=== PATIENT | male | born 1950 | race Caucasian/White ===

== ENCOUNTER 2016-07-11 21:42 | Inpatient (IN) | payer OTHER ==
[~2016-07-11] VITALS: Ht 175.3 cm; Wt 77.1 kg
--- NOTE | 2016-07-11 23:43 | DIAGNOSTIC IMAGING REPORT ---
PROCEDURE: US VENOUS - RIGHT EXT INDICATION: Right lower extremity edema and pain, initial encounter TECHNIQUE: Duplex sonography of the deep venous system in the right lower extremity was performed. Compression and augmentation techniques were used. COMPARISON: None. FINDINGS: Normal compression of the greater saphenous, common femoral, superficial femoral, popliteal, peroneal, and posterior tibial veins. Normal augmentation. There is no evidence of superficial or deep venous thrombosis. There are several mildly prominent right inguinal lymph nodes. IMPRESSION: 1. No evidence of a right lower extremity DVT 2. Mild right inguinal adenopathy, likely reactive
[2016-07-12] VITALS (14 sets, daily range): BP systolic 100–153; BP diastolic 44–69
--- NOTE | 2016-07-12 00:54 | ED CLINICAL REPORT ---
Clinical Report - Physicians/Mid Levels [facility] [address] [place] [address] 07/11/2016 21:42 Patient: AMAN SALINAS Time Seen: 22:13; initial patient contact, initial documentation, patient care assumed. Arrived- By private vehicle. Historian- patient. HISTORY OF PRESENT ILLNESS Chief Complaint: Injury to right ankle and knee. The injury happened about 4 days ago. Occurred at home. ( knelt down and thought his knee hit something hard). Patient is experiencing moderate pain. Patient denies injury to the head or neck. No other injury. REVIEW OF SYSTEMS The patient complains of pain on weight bearing. He has had swelling. No tingling, weakness, numbness or skin laceration. All systems otherwise negative, except as recorded above. PAST HISTORY See nurses notes. ( PROBLEMS: Abrasion(s). Laceration. Fall. --21:51 Carson Briones R.N. ADDITIONAL SURGERIES: Adenoidectomy. Tonsillectomy. --21:51 Carson Briones R.N.). SOCIAL HISTORY Heavy tobacco smoker. History of heavy IV drug use: heroin. No alcohol use. No recent travel. Is a local resident. FAMILY HISTORY No significant family medical history. ADDITIONAL NOTES The nursing notes have been reviewed with agreement regarding the chief complaint, HPI, ROS, PMH and patient medications and allergies. PHYSICAL EXAM Vital Signs: 07/11/2016 21:49 BP: 134/56. HR: 120. RR: 18. O2 saturation: 98%. Temp: 98 F. Have been reviewed as abnormal and appear to be correct. Blood pressure normal. Tachycardic. Respiratory rate normal. Temperature normal. Oxygen saturation normal. Appearance: Alert. Oriented X3. No acute distress. Head: Head atraumatic. Eyes: Pupils equal, round and reactive to light. Eyes normal inspection. Neck: Normal inspection. Neck supple. C-spine non-tender. CVS: Heart rate / rhythm abnormal. Tachycardia (ventricular rate = 116). Heart sounds normal. Pulses normal. Respiratory: No respiratory distress. Breath sounds normal. Chest nontender. Abdomen: No visible injury. Soft and nontender. Bowel sounds normal. No organomegaly. No mass. Back: Normal inspection. No tenderness. ROM normal. Skin: Skin intact. Skin warm and dry. Normal skin color. Normal skin turgor. Extremities: Lower extremity soft-tissue tenderness present. No signs of infection involving the lower extremities. No bony tenderness in the lower extremities. Ankle stable. (large amount of swelling to knee, lower leg and foot, warmth, mild erythema, tenderness, decreased rom secondary to pain, pedal edema +1). Able to test ankle stability. Lower extremity exam not otherwise negative. Extremities otherwise negative. Gait: Abnormal gait. Gait not tested due to pain. Neuro, Vascular and Tendons: Vascular status intact. Sensation intact. Motor intact. Tendon function intact. Neuro: Oriented X 3. No motor deficit. No sensory deficit. LABS, X-RAYS, AND EKG X-Rays: Right knee. Laboratory Tests: CBC w Diff: (NORMAN: 07/12/2016 00:10) ( MsgRcvd 07/12/2016 01:52) Final results Test Result Flag Units (Reference) WHITE BLOOD COUNT 33.3 *H K/uL (4.5-11.5) CRITICAL RESULTS CALLEDCalled to LIONEL HANDY RN 07/12/16 0023Were 2 patient identifiers used? YWas the result read back? Y RED BLOOD COUNT 4.04 L M/uL (4.50-5.90) HEMOGLOBIN 10.4 L gm/dL (13.5-17.5) HEMATOCRIT 32.5 L % (41.0-53.0) MEAN CELL VOLUME 81 fL (80-100) MEAN CORPUSCULAR HGB 26 pg (26-34) MEAN CORPUSCULAR HGB CONC 32 g/dL (31-37) RED CELL DISTRIBUTION WIDTH 18.7 H % (11.6-14.8) PLATELET COUNT 271 K/uL (150-400) NEUTROPHIL % 88.8 H % (50-75) LYMPH % 9.9 L % (25-40) MONO % 0.4 L % (3-14) EOSINOPHIL % 0.3 % (0-4) BASOPHIL % 0.6 % (0-2) POLY % 32 L % (50-75) BAND % 56 H % (0-8) LYMPH 11 L % (25-40) MONO 1 L % (3-14) EOSINOPHIL % 0 % (0-4) BASOPHIL % 0 % (0-2) METAMYELOCYTE % 0 % (0-1) MYELOCYTE 0 % (0-1) OTHER CELL TYPE 0 ANISOCYTOSIS 1+ Lactate, Serum: (NORMAN: 07/12/2016 00:50) ( MsgRcvd 07/12/2016 01:32) Final results Test Result Flag Units (Reference) LACTIC ACID 2.1 H mmol/L (0.4-2.0) BMP: (NORMAN: 07/12/2016 00:10) ( MsgRcvd 07/12/2016 00:28) Final results Test Result Flag Units (Reference) GLUCOSE 155 H mg/dL (70-110) BUN 15 mg/dL (7-18) CREATININE 1.1 mg/dL (0.6-1.3) Estimated GFR >60 mL/min Estimated GFR- >60 mL/min Note: Persistent reduction over 3 months in eGFR<60 mL/min/1.73 m2 defines CKD. Patients with eGFR values>=60 mL/min/1.73 m2 may also have CKD if evidence ofpersistent proteinuria. Additional information may be foundat www.kidney.org. SODIUM 135 L mmol/L (136-145) POTASSIUM 3.9 mmol/L (3.5-5.1) CHLORIDE 103 mmol/L (98-107) CARBON DIOXIDE 28 mmol/L (21-32) CALCIUM 8.1 L mg/dL (8.5-10.1) Culture, Body Fluid: (NORMAN: 07/12/2016 00:01) ( MsgRcvd 07/12/2016 06:53) IP Specimen Comment: joint fluid aspirate, R knee for G stain and culture SPECIMEN DESCRIPTION: fluid aspirate R knee Is patient on antibiotics? Y If so, list antibiotic: Vancomycin Test Result Flag Units (Reference) GRAM STAIN, BODY FLUID DATE: 12/30/16 NO ORGANISMS SEEN: NO ORGANISMS SEEN WHITE BLOOD CELLS: MANY POLY . Note - Tests: (Venous Doppler R LE - no dvt verbal report given by 3 Four 5 Group). PROGRESS AND PROCEDURES Course of Care: 23:03 07/11/16. Reported off to Dr Hernandez whom is assuming care and will dispo pt after xray and doppler The case was discussed with Ms. Garvin and I reviewed his history with him and examined him. my findings were consistent with those noted by Ms. Garvin. Discussed case with hospitalist, (Cora). Reviewed test results and need for additional work-up. Agreed upon treatment plan and decision to admit. Health care provider will see patient in hospital. Patient/family counseled. Old medical records ordered. Differential Diagnosis: Other possible considerations: substance abuse, dvt, cellulitis, gout, fx, compartment syndrome. Above considerations are based on history, physical exam, X-Ray data and other information. Differential diagnosis was discussed with patient. Disposition orders written (in [facility]). Disposition: Admitted. CLINICAL IMPRESSION Cellulitis of the right lower leg. (Electronically signed by Greyson Hernandez MD 07/12/2016 8:07)
--- NOTE | 2016-07-12 00:55 | ED ORDER SUMMARY ---
..... Patient: AMAN SALINAS OrderSheet [facility] VisitID: [id number] [address] [place] [address] 66y, M Registration Date/Time: 07/11/2016 ORDER SHEET Weight: 82.5 kg (stated) Allergies: No Known Drug Allergy GENERAL ORDERS: Knee 4V Right Urgent (22:31 07/11/2016 HBivens A.R.N.P.) (22:59 MCampbell) US Venous Right Urgent (22:32 07/11/2016 HBivens A.R.N.P.) (23:12 CHagerty ER Factorer) CBC w Diff Urgent (23:05 07/11/2016 HBivens A.R.N.P.) (Ack 23:14 CHagerty ER Factorer) (0:40 JBullard R.N.) BMP Urgent (23:05 07/11/2016 HBivens A.R.N.P.) (Ack 23:14 CHagerty ER Factorer) (0:40 JBullard R.N.) Lactate, Serum Urgent (00:25 07/12/2016 Priscilla PEÑA) (Ack 0:30 CHagerty ER Factorer) (0:54 JBullard R.N.) Blood Culture (No) (N/A) Urgent (00:26 07/12/2016 Priscilla PEÑA) (Ack 0:30 CHagerty ER Factorer) (0:54 JBullard R.N.) MEDICATION ORDERS: IV FLUIDS: Vancomycin IV 2 gm/500 mL (NOW) (00:26 07/12/2016 Priscilla PEÑA) (1:10 JBullard R.N.) ORDER SHEET NOTES: [Electronically signed by Carson Briones R.N. (03:49 07/12/2016)] [Electronically signed by Greyson Hernandez MD (08:07 07/12/2016)] [Electronically locked/signed by Carson Briones R.N. (03:49 07/12/2016)]
--- NOTE | 2016-07-12 00:55 | ED ORDER SUMMARY ---
..... Patient: AMAN SALINAS OrderSheet [facility] VisitID: [id number] [address] [place] [address] 66y, M Registration Date/Time: 07/11/2016 ORDER SHEET Weight: 82.5 kg (stated) Allergies: No Known Drug Allergy GENERAL ORDERS: Knee 4V Right Urgent (22:31 07/11/2016 HBivens A.R.N.P.) (22:59 MCampbell) US Venous Right Urgent (22:32 07/11/2016 HBivens A.R.N.P.) (23:12 CHagerty ER Bryologist) CBC w Diff Urgent (23:05 07/11/2016 HBivens A.R.N.P.) (Ack 23:14 CHagerty ER Bryologist) (0:40 JBullard R.N.) BMP Urgent (23:05 07/11/2016 HBivens A.R.N.P.) (Ack 23:14 CHagerty ER Bryologist) (0:40 JBullard R.N.) Lactate, Serum Urgent (00:25 07/12/2016 Priscilla PEÑA) (Ack 0:30 CHagerty ER Bryologist) (0:54 JBullard R.N.) Blood Culture (No) (N/A) Urgent (00:26 07/12/2016 Priscilla PEÑA) (Ack 0:30 CHagerty ER Bryologist) (0:54 JBullard R.N.) MEDICATION ORDERS: IV FLUIDS: Vancomycin IV 2 gm/500 mL (NOW) (00:26 07/12/2016 Priscilla PEÑA) (1:10 JBullard R.N.) ORDER SHEET NOTES: [Electronically signed by Carson Briones R.N. (03:49 07/12/2016)] [Electronically signed by Greyson Hernandez MD (08:07 07/12/2016)] [Electronically locked/signed by Carson Briones R.N. (03:49 07/12/2016)]
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
--- NOTE | 2016-07-12 08:07 | ED MAR SUMMARY ---
..... Medication Administration Record [facility] [address] [place] [address] Patient: AMAN SALINAS Visit ID: [id number] 66y, M Weight: 82.5 kg Height/Length: 71 in BMI: 25.4 ALLERGIES: No Known Drug Allergy Start 01:10 07/12/2016 Carson Briones R.N. Medication Administered: VANCOMYCIN [IVPB], Dose: 2 gm IVPB over 1.6 hour(s), Rate: 250 mL/hr, Dispensed: 400 mL bag, Site: #1 left forearm. Medication Ordered: Vancomycin IV 2 gm/500 mL (NOW).
--- NOTE | 2016-07-12 08:07 | ED MED RECONCILIATION SUMMARY ---
Patient: AMAN SALINAS Medication Reconciliation Report [facility] VisitID: [id number] [address] [place] [address] 66y, M Registration Date/Time: 07/11/2016 Weight: 82.5 kg Height/Length: 71 in. BMI: 25.4 ALLERGIES: No Known Drug Allergy The patient's Home Medications are listed below: NONE. The source(s) of the original Home Medication information: Not obtained. The following Medications were given to the patient in the Emergency Department: Vancomycin [IVPB] IVPB bolus 0, then 2 gm 250 mL/hr, administered: 07/12/2016 1:10:00 AM The following Medications were prescribed to the patient: None.
--- NOTE | 2016-07-12 08:07 | ED DISCHARGE INSTRUCTIONS ---
Patient: AMAN SALINAS General Instructions [facility] VisitID: [id number] [address] [place] [address] 66y, M Registration Date/Time: 07/11/2016 Cellulitis of the right lower leg. (Electronically signed by Greyson Hernandez MD 07/12/2016 8:07)
--- NOTE | 2016-07-12 08:07 | ED DISCHARGE INSTRUCTIONS ---
Patient: AMAN SALINAS General Instructions [facility] VisitID: [id number] [address] [place] [address] 66y, M Registration Date/Time: 07/11/2016 Cellulitis of the right lower leg. (Electronically signed by Greyson Hernandez MD 07/12/2016 8:07)
--- NOTE | 2016-07-12 08:07 | ED MAR SUMMARY ---
..... Medication Administration Record [facility] [address] [place] [address] Patient: AMAN SALINAS Visit ID: [id number] 66y, M Weight: 82.5 kg Height/Length: 71 in BMI: 25.4 ALLERGIES: No Known Drug Allergy Start 01:10 07/12/2016 Carson Briones R.N. Medication Administered: VANCOMYCIN [IVPB], Dose: 2 gm IVPB over 1.6 hour(s), Rate: 250 mL/hr, Dispensed: 400 mL bag, Site: #1 left forearm. Medication Ordered: Vancomycin IV 2 gm/500 mL (NOW).
--- NOTE | 2016-07-12 08:07 | ED MED RECONCILIATION SUMMARY ---
Patient: AMNA SALINAS Medication Reconciliation Report [facility] VisitID: [id number] [address] [place] [address] 66y, M Registration Date/Time: 07/11/2016 Weight: 82.5 kg Height/Length: 71 in. BMI: 25.4 ALLERGIES: No Known Drug Allergy The patient's Home Medications are listed below: NONE. The source(s) of the original Home Medication information: Not obtained. The following Medications were given to the patient in the Emergency Department: Vancomycin [IVPB] IVPB bolus 0, then 2 gm 250 mL/hr, administered: 07/12/2016 1:10:00 AM The following Medications were prescribed to the patient: None.
--- NOTE | 2016-07-12 08:22 | HISTORY AND PHYSICAL ---
ADMITTED: 07/12/2016 CHIEF COMPLAINT: 1. Pain and swelling and redness in the right lower leg HISTORY OF PRESENT ILLNESS: The patient is a 66-year-old white male who presented to the emergency department in the late evening 07/11/2016 complaining of redness and pain developing in his right lower leg. He had been crawling around under his trailer changing a propane tank 3-4 days prior to his presentation. He is not sure if he somehow punctured the skin with a sharp object underneath his trailer perhaps. He also has a history of heroin use and subcutaneous injections in his thighs and hip areas. He thinks there might be a possibility that he injected somewhat lower, closer to his right knee, though he does not recall doing this. He had the redness developing initially in the mid portion of the lower leg and then it seemed to spread down towards the ankle and up towards the knee. Over the last 24 hours, it has become extremely painful. He is no longer able to bear weight on his leg. He has had perhaps low-grade fever. He has had no shaking chills. He has not felt nauseated or lightheaded. 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 He was never able to control the pain very well and this led him to start using heroin years ago and he has persisted using the heroin for pain control for many, many years. He does subcutaneous injections quite regularly for pain control. He has occasionally used intravenous heroin, though he has not administered it this way for quite a long time. He denies having any other major medical problems. He has had no hospitalizations for infections or other medical difficulties. Surgical History: Remarkable for remote tonsillectomy and adenoidectomy. ALLERGIES: 1. NONE MEDICATIONS: Occasional Aleve in addition to the heroin. He does not usually use any other medicines. SOCIAL HISTORY: The patient is currently single. He has been and 3 times. He has no children. He was taking care of his mother for a number of years. Currently, he is living in a small trailer. He does smoke 1 to 1-1/2 pack of cigarettes per day. He does not use any alcohol. FAMILY HISTORY: Remarkable for a mother who at age 99 years 7 months of basically old age. The patient's father around age 66 or 67 of non-Hodgkin's lymphoma. REVIEW OF SYSTEMS: HEENT is okay. The patient does wear corrective lenses. Respiratory: Okay with no major coughing or shortness of breath, but does have somewhat of a chronic cough due to smoking. Cardiovascular: Okay with no history of heart problems or rapid heartbeats or circulatory problems. Gastrointestinal is stable with no heartburn or blood in stools or abdominal pain. Genitourinary: Okay with no problems passing urine. Musculoskeletal is remarkable for chronic low back pain, chronic shoulder pain and swelling in the right lower leg as noted. Neurologic: Okay. Psychiatric: Okay. Skin is as noted above with redness and tenderness developing in the right lower leg and knee area. PHYSICAL EXAMINATION: GENERAL: Reveals the patient to be a white male appearing to be his stated age to perhaps slightly older. He is conversant and cooperative. VITAL SIGNS: Temperature is 99.3. Pulse is around 100 and regular. Blood pressure is 118/70. O2 saturation is 100% on room air. HEENT: Head is normal. Ear canals and tympanic membranes are normal. Eyes show pupils equal, round, and reactive to light with normal extraocular movements. Fundi reveal flat disks, normal vessels. Nose and throat are clear. Dentition is fair. NECK: Supple without adenopathy. There are no bruits. CHEST: Reveals somewhat decreased breath sounds with an I:E ratio about 1:1. There are no major rales, wheezes or rhonchi. HEART: Reveals normal S1 and S2 with a grade 1/6 systolic murmur along the left sternal border. There is no diastolic murmur. ABDOMEN: Nontender with no organomegaly or mass. Bowel tones are normal. GENITALIA: Show normal uncircumcised male with testes descended bilaterally. RECTAL: Reveals a small external hemorrhoidal tag. There are no rectal masses. Prostate is moderately enlarged and shows no distinct nodule. NEUROLOGIC: Reveals the patient to be alert and oriented x3. Cranial nerves are normal. Motor and sensory exams are normal. EXTREMITIES: Show multiple pock arreola in the left lower extremity with +1 to +2 lower leg and ankle edema, +2 dorsalis pedis pulses noted on the left. Right lower extremity reveals the right thigh to be normal in size with multiple small pock arreola from prior heroin injections, but none active currently. There is erythema and swelling beginning at the knee with a moderate knee effusion. The erythema extends down to the ankle. There is quite pronounced pain and inability to flex the right knee without excruciating pain. There is +3 edema from the knee to the ankle and foot area, +2 dorsalis pedis pulse noted on the left. Sensation in the lower legs is normal. No other skin abnormalities are noted. LAB/IMAGING: Show white blood cell count to be 33,000 with 89% polys. Hemoglobin is 10.4. Hematocrit is 32.5. Sodium is 135, potassium 3.9, chloride 103, CO2 of 28, glucose 155, creatinine 1.1. BUN 15. A Doppler ultrasound of the right lower extremity showed no evidence of deep vein thrombosis. IMPRESSION: 1. The patient is presenting with cellulitis of the right lower extremity. He may have a septic arthritis in the right knee. Right knee joint was aspirated and fluid was sent for Gram stain and culture. See the procedure note. 2. Other problems include heroin abuse, mild chronic obstructive pulmonary disease, chronic back pain, moderate prostate hypertrophy. PLAN: The patient was started on vancomycin in the emergency department and this will be continued. He will have initial antibiotic ordered to expand for gram-negative coverage until culture results become available. Pain will be managed with oral Vicodin plus hydromorphone IV if needed for breakthrough pain. He may need an orthopedic consult to be considered for drainage and debridement of the knee if the joint fluid comes back positive for infection. Additionally, he will have blood testing done for hepatitis B and C, HIV infection and will also have a PSA test done. Smoking urges will be controlled with a trial of nicotine patch. CODE STATUS: I discussed his code status. He wishes to be a NO CODE. He would like to have aggressive treatment with medications, but if his heart suddenly stopped beating and he needed defibrillation or if he had worsening of his breathing and reached the point where he needed to be intubated and on the ventilator, he would not wish to proceed with either of these procedures. Additionally, he would not want a long- term feeding tube. These items are recorded in his chart.
--- NOTE | 2016-07-12 08:26 | HISTORY AND PHYSICAL ---
ADMITTED: 07/12/2016 ADDENDUM REVIEW OF SYSTEMS: I discussed his code status. He wishes to be a NO CODE. He would like to have aggressive treatment with medications, but if his heart suddenly stopped beating and he needed defibrillation or if he had worsening of his breathing and reached the point where he needed to be intubated and on the ventilator, he would not wish to proceed with either of these procedures. Additionally, he would not want a long- term feeding tube. These items are recorded in his chart.
--- NOTE | 2016-07-12 11:29 | DIAGNOSTIC IMAGING REPORT ---
PROCEDURE: XR KNEE 4 VIEWS - RIGHT INDICATION: TRAUMA/INJURY TECHNIQUE: Four views. COMPARISON: Venous ultrasound same date FINDINGS: Osseous structures and joint spaces are normal. IMPRESSION: 1. Normal right knee.
[2016-07-13] VITALS (24 sets, daily range): BP systolic 106–125; BP diastolic 40–60
--- NOTE | 2016-07-13 10:22 | Progress Note ---
Subjective General pt. is feeling better. Leg is less painful and kne is less swollen. He feels dose of methadone is too low. Constitutional Malaise. Denies: Fever, Chills, Sweats. Respiratory Denies: SOB w/exertion, Wheezing, Hemoptysis. Gastrointestinal Nausea. Denies: Other (anorexia). Musculoskeletal Leg Pain (leg and knee pain improving.). Physical Exam Vital Signs / I&Os Vital Signs Date Time Temp Pulse Resp B/P Pulse O2 O2 Flow FiO2 Ox Delivery Rate 07/13 0958 Room Air 07/13 0900 91 19 119/56 98 Room Air 07/13 0800 86 18 116/52 99 Room Air 07/13 0715 98.1 07/13 0700 88 18 117/58 99 Room Air 07/13 0610 91 18 114/51 98 Room Air 07/13 0500 88 18 110/59 97 Room Air 07/13 0400 87 18 115/55 98 Room Air 07/13 0300 85 17 121/58 98 Room Air 07/13 0200 98.2 89 20 125/57 97 Room Air 07/13 0100 98 15 108/55 100 Room Air 07/13 0000 97 17 122/50 98 Room Air 07/12 2300 98.4 101 25 105/53 98 Room Air 07/12 2209 90 20 108/57 97 07/12 2117 89 25 103/55 99 07/12 2030 Room Air 07/12 2015 91 18 113/53 99 07/12 1904 98.6 92 21 104/61 100 07/12 1810 97 18 124/57 95 07/12 1700 81 19 104/59 97 07/12 1606 91 23 108/61 97 07/12 1503 93 19 108/56 97 07/12 1411 98.2 92 14 153/44 97 07/12 1300 98.4 88 20 100/62 99 Room Air 07/12 1027 98.2 88 20 108/63 99 Room Air I&O 07/12 0800 07/12 1600 07/13 0000 Intake Total 480 1222 Output Total 275 Balance 480 947 General Appearance Alert, Oriented X3, Cooperative HEENT Normal exam Lungs decrease BS with some faint rhonchi Cardiovascular Regular rate and rhythm, Normal S1 and S2, No murmurs, gallops, rubs Abdomen Normal bowel sounds, No guarding Extremities reddness and warmth and edema of R knee and lower leg are all improving. Psych/Mental Status Mental status normal LAB Results Laboratory Tests 07/12 07/12 07/12 07/12 07/13 1041 1440 1440 1750 0408 Chemistry Plasma Sodium (136 - 145 mmol/L) 141 Plasma Potassium (3.5 - 5.1 mmol/L) 3.7 Plasma Chloride (98 - 107 mmol/L) 106 CO2 (Enzymatic) (21 - 32 mmol/L) 26 BUN (7 - 18 mg/dL) 21 Creatinine (0.6 - 1.3 mg/dL) 1.1 Est GFR ( Amer) (mL/min) >60 Est GFR (Non-Af Amer) (mL/min) >60 Glucose (70 - 110 mg/dL) 111 Lactic Acid (0.4 - 2.0 mmol/L) 1.8 1.1 Plasma Calcium (8.5 - 10.1 mg/dL) 7.5 Plasma Magnesium (1.8 - 2.4 mg/dL) 1.7 Total Bilirubin (0.0 - 1.0 mg/dL) 1.1 Direct Bilirubin (0 - 0.3 mg/dL) 0.8 AST (15 - 37 U/L) 14 ALT (12 - 78 U/L) 10 Alkaline Phosphatase (46 - 116 U/L) 146 C-Reactive Protein (0.0 - 0.9 mg/dL) 25.4 Total Protein (6.4 - 8.2 g/dL) 5.4 Albumin (3.3 - 5.0 g/dL) 1.6 Procalcitonin (0 - 0.5 ng/mL) 4.5 Hematology WBC (4.5 - 11.5 K/uL) 38.1 RBC (4.50 - 5.90 M/uL) 3.68 Hgb (13.5 - 17.5 gm/dL) 9.6 Hct (41.0 - 53.0 %) 29.7 MCV (80 - 100 fL) 81 MCH (26 - 34 pg) 26 RDW (11.6 - 14.8 %) 18.9 Neut % (Auto) (50 - 75 %) 53 Lymph % (Auto) (25 - 40 %) 11 [place] % (Auto) (3 - 14 %) 5 Eos % (Auto) (0 - 4 %) 1 Baso % (Auto) (0 - 2 %) 1 Band Neutrophils % (0 - 8 %) 29 Metamyelocytes % (0 - 1 %) 0 Myelocytes (0 - 1 %) 0 Other Cell Type 0 Plt Count, EDTA (150 - 400 K/uL) 244 RBC Morphology (47319 A) 1+ MICROCYTOSIS PUBS MCHC (31 - 37 g/dL) 32 07/13 0408 Chemistry Plasma Sodium (136 - 145 mmol/L) 142 Plasma Potassium (3.5 - 5.1 mmol/L) 3.7 Plasma Chloride (98 - 107 mmol/L) 106 CO2 (Enzymatic) (21 - 32 mmol/L) 26 BUN (7 - 18 mg/dL) 22 Creatinine (0.6 - 1.3 mg/dL) 1.1 Est GFR ( Amer) (mL/min) >60 Est GFR (Non-Af Amer) (mL/min) >60 Glucose (70 - 110 mg/dL) 114 Plasma Calcium (8.5 - 10.1 mg/dL) 7.4 Assessment and Plan Problem List 1. Cellulitis Plan continue vancomycin and Zosyn. Await cultures. 2. Heroin use Plan Pt. quite restless. Will increase methadone to 10mg q 6h. 3. COPD (chronic obstructive pulmonary disease) Plan Breathing stable. Stay off cigs. Nicotine patch prn. 4. Abnormal liver function test Plan will check for HepB,HepC, HIV. E&M Codes Rounding: Inpt-Moderate/84601
[2016-07-14] VITALS (11 sets, daily range): BP systolic 112–145; BP diastolic 47–94
--- NOTE | 2016-07-14 09:07 | Progress Note ---
Subjective General 66 yo male admitted with right knee cellulitis with redness, swelling and pain for 6 days since injuring it. Patient has chronic pain and uses heroin for pain control. Today he feels less pain and swelling in right knee and believes he is improving. Cultures of blood and knee aspirate are negative so far. Physical Exam Vital Signs / I&Os Vital Signs Date Time Temp Pulse Resp B/P Pulse O2 O2 Flow FiO2 Ox Delivery Rate 07/14 0607 98.1 82 16 119/58 90 Room Air 0.0 07/14 0504 61 16 123/58 96 Room Air 07/14 0400 98.1 70 18 131/54 96 Room Air 07/14 0313 68 14 112/47 96 Room Air 0.0 07/14 0204 98.4 75 16 122/60 95 Room Air 0.0 07/14 0100 71 14 127/59 94 Room Air 0.0 07/14 0009 85 28 127/53 94 Room Air 0.0 07/13 2309 69 18 117/54 97 Room Air 0.0 07/13 2207 98.2 71 17 125/55 95 Room Air 07/13 2109 71 17 117/50 94 Room Air 07/13 2006 73 18 123/53 98 Room Air 07/13 2004 Room Air 07/13 1900 84 16 117/54 96 Room Air 07/13 1809 98.2 83 19 122/53 92 Room Air 07/13 1711 71 15 124/59 100 Room Air 07/13 1607 70 16 120/55 99 Room Air 07/13 1510 98.2 71 21 110/60 98 Room Air 07/13 1400 74 20 106/40 98 Room Air 07/13 1300 80 18 108/60 98 Room Air 07/13 1200 90 20 119/43 98 Room Air 07/13 1129 98.1 07/13 1100 86 18 114/59 95 Room Air 07/13 1000 78 19 120/54 95 Room Air 07/13 0958 Room Air I&O 07/13 0800 07/13 1600 07/14 0000 Intake Total 1958 1739 812 Output Total 500 200 300 Balance 1458 1539 512 General Appearance Alert, Oriented X3, Cooperative Lungs Normal exam Cardiovascular Regular rate and rhythm, No murmurs, gallops, rubs Abdomen Normal bowel sounds, Soft, No tenderness Extremities Right leg diffusely swollen, worst around right knee. Mild diffuse tenderness with mild erythema. No calf tenderness. LAB Results Laboratory Tests 07/13 07/13 07/14 1124 1124 0420 Chemistry Plasma Sodium (136 - 145 mmol/L) 141 Plasma Potassium (3.5 - 5.1 mmol/L) 3.5 Plasma Chloride (98 - 107 mmol/L) 107 CO2 (Enzymatic) (21 - 32 mmol/L) 24 BUN (7 - 18 mg/dL) 24 Creatinine (0.6 - 1.3 mg/dL) 1.1 Est GFR ( Amer) (mL/min) >60 Est GFR (Non-Af Amer) (mL/min) >60 Glucose (70 - 110 mg/dL) 123 Plasma Calcium (8.5 - 10.1 mg/dL) 7.4 Plasma Magnesium (1.8 - 2.4 mg/dL) 1.9 Hematology WBC (4.5 - 11.5 K/uL) 27.6 RBC (4.50 - 5.90 M/uL) 3.39 Hgb (13.5 - 17.5 gm/dL) 8.8 Hct (41.0 - 53.0 %) 27.0 MCV (80 - 100 fL) 80 MCH (26 - 34 pg) 26 RDW (11.6 - 14.8 %) 18.8 Neut % (Auto) (50 - 75 %) 73 Lymph % (Auto) (25 - 40 %) 11 [place] % (Auto) (3 - 14 %) 0 Eos % (Auto) (0 - 4 %) 1 Baso % (Auto) (0 - 2 %) 0 Band Neutrophils % (0 - 8 %) 15 Metamyelocytes % (0 - 1 %) 0 Myelocytes (0 - 1 %) 0 Other Cell Type 0 Plt Count, EDTA (150 - 400 K/uL) 202 RBC Morphology (59030 A) 1+ MICROCYTOSIS PUBS MCHC (31 - 37 g/dL) 33 ESR Westergren (0 - 20 mm/hr) 50 Serology Hep Bs Antigen Pending Hep Bs Antibody Pending Hep B Core Total Ab Pending Hep B Core IgM Ab Pending Hepatitis C Antibody Pending HIV 1&2 Antibody Screen (NEGATIVE) NEGATIVE HIV P24 Ag, Qual (NEGATIVE) NEGATIVE Toxicology Vancomycin Trough (10.0 - 20.0 ug/mL) 19.2 Assessment and Plan Problem List 1. Cellulitis Plan Continue IV antibiotics. 2. Heroin use Plan Psswible contributing to cellulitis. 3. Chronic pain Plan Pain poorly controlled. Will increase methadone.
[2016-07-15 02:07] VITALS: BP 131/63
[2016-07-15 06:56] VITALS: BP 127/61
--- NOTE | 2016-07-15 09:22 | Progress Note ---
Subjective General Note Date: July 15, 2016 Admission Date: July 12, 2016 Hospital Day: 4 PCP: None Status: Inpatient Advanced Directive: Chemical Code Room: 305 Brief History: The patient is a 66-year-old white male with a significant past medical history of illicit drug use-heroin, opiate dependence 10 years, degenerative joint disease, chronic low back pain, who presented to [facility] emergency department on the day of admission secondary to complaints of painful, red, swollen right knee and leg. [facility] ER evaluation was consistent with cellulitis of the right lower extremity with possible septic arthritis of the right knee. Secondary to the above, the patient was admitted by Jassi Shepherd M.D. for further evaluation and treatment. For other history present illness, past medical history, family history, social history, review of systems, and admission physical examination please see the patient's history and physical examination and ER visit note in the patient's medical record. Subjective: The patient states he has persistent pain involving the right lower leg and knee. The pain is primarily located in the right knee at this time. Decrease swelling and erythema. Patient requests: No specific Medications and Allergies Medications Current Medications Sig/Lior Start time Last Medication Dose Route Stop Time Status Admin Clarify Med Order See Dose 1130 07/16 1130 AC Insts (1) IV 07/16 1131 Methadone HCl 15 MG Q6HR 07/14 1200 AC 07/15 PO 0604 Vancomycin HCl/ 200 ML 0000,1200 07/14 1200 AC 07/15 Dextrose IV 0020 Sodium Chloride 1,000 ML ASDIRECTED 07/13 2145 AC 07/14 IV 2025 Pantoprazole Sodium 40 MG QAM 07/13 0900 AC 07/15 IV 0904 Enoxaparin Sodium 40 MG QAM 07/12 1300 AC 07/15 SC 0904 Piperacillin/ 50 ML Q6HR 07/12 1200 AC 07/15 Tazobactam/Dextrose IV 0603 Nicotine 21 MG QAM 07/12 0900 AC 07/15 TOP 0904 Acetaminophen 650 MG Q4H PRN 07/12 0600 AC PO Hydromorphone HCl 1 MG Q2H PRN 07/12 0600 AC 07/15 IV 0712 Ondansetron HCl See Dose Q4H PRN 07/12 0600 AC 07/14 Insts (2) IV 1204 Triazolam 0.125 MG QHS PRN 07/12 0600 AC PO Dose Instructions: (1)Clarify Med Order: VANCOMYCIN TROUGH (2)Ondansetron HCl: 4 - 8 MG Allergies Coded Allergies: NKA (07/12/16) Physical Exam Vital Signs / I&Os Vital Signs Date Time Temp Pulse Resp B/P Pulse O2 O2 Flow FiO2 Ox Delivery Rate 07/15 0656 99.0 62 15 127/61 96 Room Air 07/15 0207 98.2 65 19 131/63 94 Room Air 07/14 2220 98.2 69 19 126/59 99 Room Air 07/14 2100 Room Air 07/14 1825 98.2 65 17 132/94 98 Room Air 07/14 1422 98.2 67 22 145/60 100 Room Air 07/14 1118 Room Air 07/14 1102 97.7 63 16 135/55 98 Room Air I&O 07/15 0000 07/14 1600 07/14 0800 Intake Total 965 1031 Output Total 200 220 500 Balance -200 745 531 General Appearance Alert, Oriented X3, Cooperative, No acute distress Lungs Clear to auscultation Cardiovascular Regular rate and rhythm, Normal S1 and S2 Abdomen Normal bowel sounds, Soft, No tenderness Extremities No cyanosis, No clubbing, Diffuse swelling right leg with knee effusion present. Pain with flexion/extension right knee. No significant erythema. Neurological Cranial nerves intact, No lateralizing signs Psych/Mental Status Mental status normal, Mood normal LAB Results Laboratory Tests 07/15 0435 Chemistry Plasma Sodium (136 - 145 mmol/L) 141 Plasma Potassium (3.5 - 5.1 mmol/L) 3.6 Plasma Chloride (98 - 107 mmol/L) 107 CO2 (Enzymatic) (21 - 32 mmol/L) 23 BUN (7 - 18 mg/dL) 18 Creatinine (0.6 - 1.3 mg/dL) 0.5 Est GFR ( Amer) (mL/min) >60 Est GFR (Non-Af Amer) (mL/min) >60 Glucose (70 - 110 mg/dL) 135 Plasma Calcium (8.5 - 10.1 mg/dL) 7.1 Plasma Magnesium (1.8 - 2.4 mg/dL) 1.7 Total Bilirubin (0.0 - 1.0 mg/dL) 0.8 AST (15 - 37 U/L) 13 ALT (12 - 78 U/L) 10 Alkaline Phosphatase (46 - 116 U/L) 173 Total Protein (6.4 - 8.2 g/dL) 5.9 Albumin (3.3 - 5.0 g/dL) 1.4 Hematology WBC (4.5 - 11.5 K/uL) 26.9 RBC (4.50 - 5.90 M/uL) 3.45 Hgb (13.5 - 17.5 gm/dL) 8.8 Hct (41.0 - 53.0 %) 27.7 MCV (80 - 100 fL) 80 MCH (26 - 34 pg) 26 RDW (11.6 - 14.8 %) 19.1 Neut % (Auto) (50 - 75 %) 72 Lymph % (Auto) (25 - 40 %) 23 [place] % (Auto) (3 - 14 %) 2 Eos % (Auto) (0 - 4 %) 2 Baso % (Auto) (0 - 2 %) 0 Band Neutrophils % (0 - 8 %) 1 Metamyelocytes % (0 - 1 %) 0 Myelocytes (0 - 1 %) 0 Other Cell Type 0 Plt Count, EDTA (150 - 400 K/uL) 171 Anisocytosis (manual) 1+ [place] Cells 1+ PUBS MCHC (31 - 37 g/dL) 32 Assessment and Plan Problem List 1. Cellulitis Plan -Improved -Continue vancomycin/Zosyn -Orthopedic consult secondary to suspected septic arthritis. No cell count obtained at time of aspiration. Culture negative at this time. 2. COPD (chronic obstructive pulmonary disease) Plan -Patient with history of COPD. -No respiratory symptoms at this time. -Monitor 3. Hypomagnesemia Status Acute Onset Date Unknown Plan -Patient with findings of hypomagnesemia -Magnesium 2 g IV now -Slow-Mag one by mouth 3 times a day. 4. Chronic pain Plan -Patient with history of chronic pain -Encourage enrollment in drug treatment program post hospitalization/pain clinic. 5. Illicit drug use Status Chronic Onset Date Unknown Plan -Patient with history of illicit drug use-heroin -See below -Encourage enrollment in drug treatment program post hospitalization 6. Nicotine dependence Status Chronic Onset Date Unknown Plan -Nicotine dependence-smoking -Smoking cessation education -NicoDerm as needed. 7. Opiate dependence Status Chronic Onset Date Unknown Plan Patient with history of opiate dependence/heroin use. Current usage 2 g per day. Methadone 15 mg by mouth every 6 hours. No opiate withdrawal symptoms at this time. Current status: Fair, improved Anticipated discharge date: Anticipated discharge in 2-3 days Anticipated discharge placement: Home Patient care time: Time spent in chart review, patient interview, physical exam, CPOE, and care documentation: 25 minutes Visit to patient today: 1 Complexity of care: Moderate
[2016-07-15 11:10] VITALS: BP 135/58
--- NOTE | 2016-07-15 13:03 | CONSULTATION REPORT ---
DATE OF CONSULTATION: 07/15/2016 REQUESTING PHYSICIAN: Dr. Toby Frost. REASON FOR CONSULTATION: Right lower extremity cellulitis and evaluation for possible septic knee arthritis, requiring operative debridement. HISTORY OF PRESENT ILLNESS: A 66-year-old retired male reports that approximately a week ago he was crawling under the extended slide out on his trailer to change the propane tank when he felt a sharp pain in the area of his right knee. He waited for 3-4 days prior to presenting to [facility] on the evening of 07/11/2016 complaining of redness and pain in the right lower extremity. He was found to have yessy cellulitis and a swollen knee. Ultrasound was obtained which ruled out deep venous thrombosis. Did note some minor right inguinal adenopathy. X-rays of the knee were obtained which were read as normal and on my review show some [id number] degenerative changes and a mild effusion in the knee. The knee was tapped for what the patient described as a clear, yellow fluid, which was sent to the lab. It showed many PMNs, but no organisms and has grown nothing on culture in either aerobic or anaerobic areas. He has been started on vancomycin and the knee has gradually improved, but he still has pain with weightbearing and does not have full motion yet. He has been afebrile throughout his time in the hospital, but he did have a dramatically elevated white blood cell count on admission of approximately 33.3, which raised slightly to 38.1 on 07/13/2016 and has subsequently decreased to 27.6 on 07/14/2016 and 26.9 on 07/15/2016. Interestingly, he does not have a marked elevation in his percent neutrophils, which today is 72% with only 1 band, although earlier in his hospitalization he did have 6 bands. C-reactive protein level and erythrocyte sedimentation level were both elevated at 25.7 and 50 on 07/12/2016. Of note, blood cultures were sent on that date and were negative x2. His lactic acid was only mildly elevated at 2.1 and returned to normal on 07/12/2016 as well. MRSA screen was negative. He does have a history of parenteral drug use of heroin with subcutaneous injections in his thigh and to the region above the knee, which may have been contributory. Other significant laboratory findings are signs of poor nutrition including a total protein of 5.9 and an albumin today of 1.4. Hematocrit is 27.7. He has been n.p.o. since 8 a.m. MEDICAL/SURGICAL HISTORY: Is significant for chronic low back pain, shoulder pain, heroin use, remote tonsillectomy, adenoidectomy. MEDICATIONS: Are as documented in the electronic medical record and include vancomycin ------ - ALLERGIES: 1. HE HAS NO KNOWN DRUG ALLERGIES. SOCIAL HISTORY: The patient is currently single. He has been and and has no children. His mother apparently lived to 99 years and 7 months. He smokes 1 to 1-1/2 packs of cigarettes per day. He denies alcohol use. FAMILY HISTORY: REVIEW OF SYSTEMS: Is otherwise, negative in 12 systems. PHYSICAL EXAMINATION: VITAL SIGNS: The patient is afebrile with temperature of 36.3 Celsius, pulse of 62, respirations 13, blood pressure 135/58, pulse oximetry 97%. Review again of his prior vital signs show at no point has T-max been over 37.0 and that was on 07/12/2016 at 7 p.m. GENERAL: He is alert and oriented x3, in no acute distress. EXTREMITIES: His right lower extremity is generally swollen, but there is a return of wrinkles. The most swollen area is from the suprapatellar area down involving the entire lower leg segment. Sensation is intact to light touch in bilateral sural saphenous, plantar deep and superficial peroneal nerve distributions. He is able to fire bilateral toe and ankle flexors and extensors. He can straight leg raise on the right side and active knee range of motion is approximately 15-95 degrees with pain at the extremes. There is an effusion in the right knee, predominantly in the suprapatellar area and the knee is tender, but stable. Capillary refill is approximately 2 seconds in bilateral toes. LAB IMAGING: Today white blood cell count is 26.9, hematocrit 27.7%, neutrophils 72%, lymphocytes 23, monocytes 2, 1% band neutrophils. Platelet count is 171,000. Electrolytes are within normal limits. Creatinine is low at 0.5, glucose 135, is only mildly elevated. Plasma calcium and magnesium are both low at 7.1 and 1.7 respectively. Total bilirubin is normal at 0.8. AST 13 and ALT 10 are both low. Alkaline phosphatase mildly elevated at 173, total protein low at 5.9 and albumin dramatically low at 1.4. All cultures are no growth at 2 days as described in the history above. Knee x-rays I have reviewed and agree with the radiologist's report that there is no evidence of acute infection, osteomyelitis, and only a mild effusion is appreciated. IMPRESSION: 1. Right lower extremity cellulitis and a knee effusion. Recommendations are to a retap the knee for synovial fluid analysis including crystals, cell count and culture. The patient is amenable to this. PROCEDURE: After informed verbal consent the knee is prepped with Betadine x3 and 40 mL of hazy yellow fluid is withdrawn with an 18-gauge needle from the suprapatellar lateral approach. The effusion visibly decreases in the knee. Band-Aid dressing is applied. The patient will be n.p.o until lab results indicate whether there is evidence of persistent infection that might benefit from irrigation and debridement. The patient and nurse are aware of the plans.
--- NOTE | 2016-07-15 13:15 | Consultation Report ---
History Chief Complaint R knee and leg pain and swelling History of Present Illness Please see dictated consult note, briefly, ortho consulted by Dr. Frost to evaluate R knee after ? trauma changing propane tank under trailer ~ 1 week ago. Admitted several days later with R LE cellulitis. Knee tapped for yellow fluid, many PMNs no orgs or growth in aerobic or anaerobic cultures. Blood cultures no growth x 2. Afebrile but WBC decreasing slowly from 33.8 on admission to 26.9 today. only 72% PMNs and 1 band (down from 56 on admission). Was minimally tachy to 103 and minimal elevated lactate of 2.1 on admission now normalized. Knee is gradually feeling better but still painful with ROM and WB. Denies fever/chills. No definitive penetrating trauma but hx of skin popping heroine in that thigh. U/S neg for DVT, mild inguinal adenopathy, no mention of abscess , knee effusion or popliteal cyst. Patient History 1. Cellulitis 2. Heroin use 3. COPD (chronic obstructive pulmonary disease) 4. Abnormal liver function test 5. Chronic pain 6. Opiate dependence 7. Nicotine dependence 8. Illicit drug use Social History Divorsed, lives alone. No kids. Smoker, heroine use chronic. Family History Family history was reviewed; no changes noted. Medications and Allergies Medications Current Medications Sig/Lior Start time Last Medication Dose Route Stop Time Status Admin Clarify Med Order See Dose 1130 07/16 1130 AC Insts (1) IV 07/16 1131 Magnesium Chloride 535 MG TID 07/15 1400 AC PO Calcium Carbonate 2,000 MG DAILY 07/15 1146 AC PO Cholecalciferol 2,000 UNIT DAILY 07/15 1144 AC PO Methadone HCl 15 MG Q6HR 07/14 1200 AC 07/15 PO 0604 Vancomycin HCl/ 200 ML 0000,1200 07/14 1200 AC 07/15 Dextrose IV 0020 Sodium Chloride 1,000 ML ASDIRECTED 07/13 2145 AC 07/14 IV 202 Pantoprazole Sodium 40 MG QAM 07/13 09 AC 07/15 IV 09 Enoxaparin Sodium 40 MG QAM 07/12 1300 AC 07/15 SC 0904 Piperacillin/ 50 ML Q6HR 07/12 1200 AC 07/15 Tazobactam/Dextrose IV 0603 Nicotine 21 MG QAM 07/12 0900 AC 07/15 TOP 0904 Acetaminophen 650 MG Q4H PRN 07/12 600 AC PO Hydromorphone HCl 1 MG Q2H PRN 07/12 600 AC 07/15 IV 0946 Ondansetron HCl See Dose Q4H PRN 07/12 600 AC 07/14 Insts (2) IV 1204 Triazolam 0.125 MG QHS PRN 07/12 600 AC PO Dose Instructions: (1)Clarify Med Order: VANCOMYCIN TROUGH (2)Ondansetron HCl: 4 - 8 MG Allergies Coded Allergies: NKA (07/12/16) Review of Systems Constitutional Denies: Fever, Chills, Sweats, Weakness, Malaise. Musculoskeletal Shoulder Pain, Back Pain. Physical Exam Vital Signs / I&Os Vital Signs Date Time Temp Pulse Resp B/P Pulse O2 O2 Flow FiO2 Ox Delivery Rate 07/15 1110 36.3 62 13 135/58 97 Room Air 07/15 0800 Room Air 07/15 0656 37.2 62 15 127/61 96 Room Air 07/15 0207 36.8 65 19 131/63 94 Room Air 07/14 2220 36.8 69 19 126/59 99 Room Air 07/14 2100 Room Air 07/14 1825 36.8 65 17 132/94 98 Room Air 07/14 1422 36.8 67 22 145/60 100 Room Air I&O 07/15 0000 07/14 1600 07/14 0800 Intake Total 965 1031 Output Total 200 220 500 Balance -200 745 531 General Appearance Alert, Oriented X3, Cooperative, No acute distress Extremities mild effusion R suprapatella knee. ROM 15-95. Cellulitis and swelling from lower knee distally. Calf minimally tender, moderately swollen and edematous. R knee not circumferentially red or swollen. Skin No evidence of acute penetrating trauma. Multiple hypopigmented pok arreola anteror medial thigh without cellulitis or abcess. Neurological Normal exam, Normal speech, Normal tone, Sensation intact, No lateralizing signs (R SLR, knee&ankle Flex/Ext OK) Psych/Mental Status Mental status normal, Mood normal LAB Results Laboratory Tests 07/15 07/15 07/15 1145 1100 0435 Chemistry Plasma Sodium (136 - 145 mmol/L) 141 Plasma Potassium (3.5 - 5.1 mmol/L) 3.6 Plasma Chloride (98 - 107 mmol/L) 107 CO2 (Enzymatic) (21 - 32 mmol/L) 23 BUN (7 - 18 mg/dL) 18 Creatinine (0.6 - 1.3 mg/dL) 0.5 Est GFR ( Amer) (mL/min) >60 Est GFR (Non-Af Amer) (mL/min) >60 Glucose (70 - 110 mg/dL) 135 Plasma Calcium (8.5 - 10.1 mg/dL) 7.1 Plasma Magnesium (1.8 - 2.4 mg/dL) 1.7 Total Bilirubin (0.0 - 1.0 mg/dL) 0.8 AST (15 - 37 U/L) 13 ALT (12 - 78 U/L) 10 Alkaline Phosphatase (46 - 116 U/L) 173 C-Reactive Protein (0.0 - 0.9 mg/dL) 11.1 Total Protein (6.4 - 8.2 g/dL) 5.9 Albumin (3.3 - 5.0 g/dL) 1.4 Hematology WBC (4.5 - 11.5 K/uL) 26.9 RBC (4.50 - 5.90 M/uL) 3.45 Hgb (13.5 - 17.5 gm/dL) 8.8 Hct (41.0 - 53.0 %) 27.7 MCV (80 - 100 fL) 80 MCH (26 - 34 pg) 26 RDW (11.6 - 14.8 %) 19.1 Neut % (Auto) (50 - 75 %) 72 Lymph % (Auto) (25 - 40 %) 23 [place]alding % (Auto) (3 - 14 %) 2 Eos % (Auto) (0 - 4 %) 2 Baso % (Auto) (0 - 2 %) 0 Band Neutrophils % (0 - 8 %) 1 Metamyelocytes % (0 - 1 %) 0 Myelocytes (0 - 1 %) 0 Other Cell Type 0 Plt Count, EDTA (150 - 400 K/uL) 171 Anisocytosis (manual) 1+ Miguel A Cells 1+ PUBS MCHC (31 - 37 g/dL) 32 ESR Westergren (0 - 20 mm/hr) > 140 Other Body Source Fluid Type SYNOVIAL Fluid Color YELLOW Fluid Appearance (CLEAR) CLOUDY Fluid WBC (WBC/mm3) 87565 Fluid RBC (RBC/mm3) 93960 Fluid Seg Neutrophil % (%) 92 Fluid Mononuclear Cell (%) 8 Microbiology Date/Time Procedure - Status Source Growth 07/15 1100 Anaerobic Culture - RECD BODY FLUID 07/15 1100 Body Fluid Culture - RECD BODY FLUID 07/15 1100 Gram Stain - RECD BODY FLUID Imaging R knee x-ray reviewed, mild DJD, minimal effusion. Assessment and Plan Problem List 1. Cellulitis 2. Heroin use 3. COPD (chronic obstructive pulmonary disease) 4. Abnormal liver function test 5. Effusion of knee joint right Plan Not clear whether this represents a sympathetic inflammatory infusion or partially treated sub-acute septic knee arthritis. Markedly elevated WBC with normal % PMNs and no fever are incongruous. ESR increasing but WBC and CRP decreasing on Vanco. Knee feels better after aspiration of 40 mL hazy yellow fluid with 44k synovial WBC 92% PMNs more consistent with inflammatory then acute septic arthritis. Will await results of crystal analysis, follow labs and clinical course. If worsens would consider arthroscopic I&D over open given evidence of severe protein malnutrition with Albumin of 1.4 and total protein 5.9. OK to feed today but NPO p MN.
[2016-07-15 15:07] VITALS: BP 136/64
[2016-07-15 18:27] VITALS: BP 138/64
[2016-07-15 22:35] VITALS: BP 147/70
[2016-07-16 02:25] VITALS: BP 146/65
[2016-07-16 07:43] VITALS: BP 140/58
--- NOTE | 2016-07-16 08:19 | Progress Note ---
Subjective General Note Date: July 16, 2016 Admission Date: July 12, 2016 Hospital Day: 5 PCP: None Status: Inpatient Advanced Directive: Chemical Code Room: 305 Brief History: The patient is a 66-year-old white male with a significant past medical history of illicit drug use-heroin, opiate dependence 10 years, degenerative joint disease, chronic low back pain, who presented to [facility] emergency department on the day of admission secondary to complaints of painful, red, swollen right knee and leg. [facility] ER evaluation was consistent with cellulitis of the right lower extremity with possible septic arthritis of the right knee. Secondary to the above, the patient was admitted by Jassi Shepherd M.D. for further evaluation and treatment. For other history present illness, past medical history, family history, social history, review of systems, and admission physical examination please see the patient's history and physical examination and ER visit note in the patient's medical record. Subjective: The patient states status remained stable. Persistent pain in area of right knee. Persistent lower leg swelling. No fever or chills. Patient requests: None Medications and Allergies Medications Current Medications Sig/Lior Start time Last Medication Dose Route Stop Time Status Admin Clarify Med Order See Dose 1130 07/16 1130 AC Insts (1) IV 07/16 1131 Magnesium Chloride 535 MG TID 07/15 1400 AC 07/16 PO 0634 Calcium Carbonate 2,000 MG DAILY 07/15 1146 AC 07/15 PO 1258 Cholecalciferol 2,000 UNIT DAILY 07/15 1144 AC 07/15 PO 1258 Methadone HCl 15 MG Q6HR 07/14 1200 AC 07/16 PO 0634 Vancomycin HCl/ 200 ML 0000,1200 07/14 1200 AC 07/16 Dextrose IV 0116 Sodium Chloride 1,000 ML ASDIRECTED 07/13 2145 AC 07/14 IV 2025 Pantoprazole Sodium 40 MG QAM 07/13 0900 AC 07/15 IV 0904 Enoxaparin Sodium 40 MG QAM 07/12 1300 AC 07/15 SC 0904 Piperacillin/ 50 ML Q6HR 07/12 1200 AC 07/16 Tazobactam/Dextrose IV 0631 Nicotine 21 MG QAM 07/12 0900 AC 07/15 TOP 0904 Acetaminophen 650 MG Q4H PRN 07/12 0600 AC PO Hydromorphone HCl 1 MG Q2H PRN 07/12 0600 AC 07/16 IV 0518 Ondansetron HCl See Dose Q4H PRN 07/12 06 AC 07/14 Insts (2) IV 1204 Triazolam 0.125 MG QHS PRN 07/12 06 AC PO Dose Instructions: (1)Clarify Med Order: VANCOMYCIN TROUGH (2)Ondansetron HCl: 4 - 8 MG Allergies Coded Allergies: NKA (07/12/16) Physical Exam Vital Signs / I&Os Vital Signs Date Time Temp Pulse Resp B/P Pulse O2 O2 Flow FiO2 Ox Delivery Rate 07/16 0743 98.6 61 18 140/58 95 Room Air 0.0 07/16 0332 Room Air 07/16 0225 98.8 61 16 146/65 94 Room Air 0.0 07/15 2235 98.8 72 20 147/70 98 Room Air 0.0 07/15 1827 98.1 92 20 138/64 Room Air 07/15 1507 98.1 65 23 136/64 98 Room Air 07/15 1110 97.3 62 13 135/58 97 Room Air I&O 07/16 0000 07/15 1600 07/15 0800 Intake Total 933 529 4483 Output Total 650 300 375 Balance -391 058 5594 General Appearance Alert, Oriented X3, Cooperative, No acute distress Lungs Normal air movement, scattered rhonchi Cardiovascular Regular rate and rhythm, Normal S1 and S2 Abdomen Normal bowel sounds, Soft Extremities No cyanosis, No clubbing, Edema right leg unchanged. Persistent pain with knee flexion and extension. No significant erythema/warmth Neurological Cranial nerves intact, No lateralizing signs Psych/Mental Status Mental status normal, Mood normal LAB Results Laboratory Tests 07/16 07/15 07/15 07/15 0700 1145 1100 1100 Chemistry C-Reactive Protein (0.0 - 0.9 mg/dL) 8.6 11.1 Hematology WBC (4.5 - 11.5 K/uL) Pending RBC (4.50 - 5.90 M/uL) Pending Hgb (13.5 - 17.5 gm/dL) Pending Hct (41.0 - 53.0 %) Pending MCV (80 - 100 fL) Pending MCH (26 - 34 pg) Pending RDW (11.6 - 14.8 %) Pending Neut % (Auto) (50 - 75 %) Pending Lymph % (Auto) (25 - 40 %) Pending Bucks % (Auto) (3 - 14 %) Pending Band Neutrophils % (0 - 8 %) Pending Plt Count, EDTA (150 - 400 K/uL) Pending PUBS MCHC (31 - 37 g/dL) Pending ESR Westergren (0 - 20 mm/hr) > 140 Other Body Source Fluid Type SYNOVIAL Fluid Color YELLOW Fluid Appearance (CLEAR) CLOUDY Fluid WBC (WBC/mm3) 91385 Fluid RBC (RBC/mm3) 09418 Fluid Seg Neutrophil % (%) 92 Fluid Mononuclear Cell (%) 8 Synovial Crystals (None seen) Comment Microbiology Date/Time Procedure - Status Source Growth 07/15 1100 Anaerobic Culture - RES BODY FLUID 07/15 1100 Body Fluid Culture - RES BODY FLUID 07/15 1100 Gram Stain - RES BODY FLUID Assessment and Plan Problem List 1. Cellulitis Plan -Improved -WBC improved at 11.8 (26.9 on 07/15/16) -Continue present therapy -Blood cultures negative to date, synovial fluid cultures negative to date 2. Effusion of knee joint right Plan -Synovial fluid cultures 2 negative today -WBC, CRP improved -Continue with vancomycin/Zosyn -Follow-up per orthopedics, possible right knee irrigation today will most likely hold secondary to marked improvement in WBC, CRP 3. Nicotine dependence Status Chronic Onset Date Unknown Plan -Smoking cessation education -NicoDerm when necessary -Emphasize smoking abstinence post discharge 4. Opiate dependence Status Chronic Onset Date Unknown Plan -No signs of opiate withdrawal -Continue methadone -Enrollment in pain management post discharge -Enrollment in drug treatment program post discharge-[facility] methadone program 5. Hypomagnesemia Status Acute Onset Date Unknown Plan -Findings of hypomagnesemia -Slow-Mag one by mouth 3 times a day -Recheck in a.m. 6. Chronic pain Plan -Begin Celebrex 200 mg by mouth twice a day -Wean Dilaudid if possible -Outpatient referral to pain management program through PCP 7. COPD (chronic obstructive pulmonary disease) Plan -Patient with history of COPD -Not problematic at this time -Smoking cessation education -Outpatient primary function testing 8. Illicit drug use Status Chronic Onset Date Unknown Plan -Patient with history of illicit drug use-heroin -Opiate dependence -Replacement therapy with methadone -Encourage enrollment in pain management/drug rehabilitation posthospitalization Current status: Fair, improved Anticipated discharge date: Anticipated discharge in 2 days Anticipated discharge placement: Home versus long term facility Patient care time: Time spent in chart review, patient interview, physical exam, CPOE, and care documentation: 25 minutes Visit to patient today: 1 Complexity of care: Moderate E&M Codes Rounding: Inpt-Moderate/[id number]
--- NOTE | 2016-07-16 08:19 | Progress Note ---
Subjective General Note Date: July 16, 2016 Admission Date: July 12, 2016 Hospital Day: 5 PCP: None Status: Inpatient Advanced Directive: Chemical Code Room: 305 Brief History: The patient is a 66-year-old white male with a significant past medical history of illicit drug use-heroin, opiate dependence 10 years, degenerative joint disease, chronic low back pain, who presented to [facility] emergency department on the day of admission secondary to complaints of painful, red, swollen right knee and leg. [facility] ER evaluation was consistent with cellulitis of the right lower extremity with possible septic arthritis of the right knee. Secondary to the above, the patient was admitted by Jassi Shepherd M.D. for further evaluation and treatment. For other history present illness, past medical history, family history, social history, review of systems, and admission physical examination please see the patient's history and physical examination and ER visit note in the patient's medical record. Subjective: The patient states status remained stable. Persistent pain in area of right knee. Persistent lower leg swelling. No fever or chills. Patient requests: None Medications and Allergies Medications Current Medications Sig/Lior Start time Last Medication Dose Route Stop Time Status Admin Clarify Med Order See Dose 1130 07/16 1130 AC Insts (1) IV 07/16 1131 Magnesium Chloride 535 MG TID 07/15 1400 AC 07/16 PO 0634 Calcium Carbonate 2,000 MG DAILY 07/15 1146 AC 07/15 PO 1258 Cholecalciferol 2,000 UNIT DAILY 07/15 1144 AC 07/15 PO 1258 Methadone HCl 15 MG Q6HR 07/14 1200 AC 07/16 PO 0634 Vancomycin HCl/ 200 ML 0000,1200 07/14 1200 AC 07/16 Dextrose IV 0116 Sodium Chloride 1,000 ML ASDIRECTED 07/13 2145 AC 07/14 IV 2025 Pantoprazole Sodium 40 MG QAM 07/13 0900 AC 07/15 IV 0904 Enoxaparin Sodium 40 MG QAM 07/12 1300 AC 07/15 SC 0904 Piperacillin/ 50 ML Q6HR 07/12 1200 AC 07/16 Tazobactam/Dextrose IV 0631 Nicotine 21 MG QAM 07/12 0900 AC 07/15 TOP 0904 Acetaminophen 650 MG Q4H PRN 07/12 0600 AC PO Hydromorphone HCl 1 MG Q2H PRN 07/12 0600 AC 07/16 IV 0518 Ondansetron HCl See Dose Q4H PRN 07/12 06 AC 07/14 Insts (2) IV 1204 Triazolam 0.125 MG QHS PRN 07/12 06 AC PO Dose Instructions: (1)Clarify Med Order: VANCOMYCIN TROUGH (2)Ondansetron HCl: 4 - 8 MG Allergies Coded Allergies: NKA (07/12/16) Physical Exam Vital Signs / I&Os Vital Signs Date Time Temp Pulse Resp B/P Pulse O2 O2 Flow FiO2 Ox Delivery Rate 07/16 0743 98.6 61 18 140/58 95 Room Air 0.0 07/16 0332 Room Air 07/16 0225 98.8 61 16 146/65 94 Room Air 0.0 07/15 2235 98.8 72 20 147/70 98 Room Air 0.0 07/15 1827 98.1 92 20 138/64 Room Air 07/15 1507 98.1 65 23 136/64 98 Room Air 07/15 1110 97.3 62 13 135/58 97 Room Air I&O 07/16 0000 07/15 1600 07/15 0800 Intake Total 636 783 0276 Output Total 650 300 375 Balance -876 949 8169 General Appearance Alert, Oriented X3, Cooperative, No acute distress Lungs Normal air movement, scattered rhonchi Cardiovascular Regular rate and rhythm, Normal S1 and S2 Abdomen Normal bowel sounds, Soft Extremities No cyanosis, No clubbing, Edema right leg unchanged. Persistent pain with knee flexion and extension. No significant erythema/warmth Neurological Cranial nerves intact, No lateralizing signs Psych/Mental Status Mental status normal, Mood normal LAB Results Laboratory Tests 07/16 07/15 07/15 07/15 0700 1145 1100 1100 Chemistry C-Reactive Protein (0.0 - 0.9 mg/dL) 8.6 11.1 Hematology WBC (4.5 - 11.5 K/uL) Pending RBC (4.50 - 5.90 M/uL) Pending Hgb (13.5 - 17.5 gm/dL) Pending Hct (41.0 - 53.0 %) Pending MCV (80 - 100 fL) Pending MCH (26 - 34 pg) Pending RDW (11.6 - 14.8 %) Pending Neut % (Auto) (50 - 75 %) Pending Lymph % (Auto) (25 - 40 %) Pending [place] % (Auto) (3 - 14 %) Pending Band Neutrophils % (0 - 8 %) Pending Plt Count, EDTA (150 - 400 K/uL) Pending PUBS MCHC (31 - 37 g/dL) Pending ESR Westergren (0 - 20 mm/hr) > 140 Other Body Source Fluid Type SYNOVIAL Fluid Color YELLOW Fluid Appearance (CLEAR) CLOUDY Fluid WBC (WBC/mm3) 66422 Fluid RBC (RBC/mm3) 60387 Fluid Seg Neutrophil % (%) 92 Fluid Mononuclear Cell (%) 8 Synovial Crystals (None seen) Comment Microbiology Date/Time Procedure - Status Source Growth 07/15 1100 Anaerobic Culture - RES BODY FLUID 07/15 1100 Body Fluid Culture - RES BODY FLUID 07/15 1100 Gram Stain - RES BODY FLUID Assessment and Plan Problem List 1. Cellulitis Plan -Improved -WBC improved at 11.8 (26.9 on 07/15/16) -Continue present therapy -Blood cultures negative to date, synovial fluid cultures negative to date 2. Effusion of knee joint right Plan -Synovial fluid cultures 2 negative today -WBC, CRP improved -Continue with vancomycin/Zosyn -Follow-up per orthopedics, possible right knee irrigation today will most likely hold secondary to marked improvement in WBC, CRP 3. Nicotine dependence Status Chronic Onset Date Unknown Plan -Smoking cessation education -NicoDerm when necessary -Emphasize smoking abstinence post discharge 4. Opiate dependence Status Chronic Onset Date Unknown Plan -No signs of opiate withdrawal -Continue methadone -Enrollment in pain management post discharge -Enrollment in drug treatment program post discharge-[facility] methadone program 5. Hypomagnesemia Status Acute Onset Date Unknown Plan -Findings of hypomagnesemia -Slow-Mag one by mouth 3 times a day -Recheck in a.m. 6. Chronic pain Plan -Begin Celebrex 200 mg by mouth twice a day -Wean Dilaudid if possible -Outpatient referral to pain management program through PCP 7. COPD (chronic obstructive pulmonary disease) Plan -Patient with history of COPD -Not problematic at this time -Smoking cessation education -Outpatient primary function testing 8. Illicit drug use Status Chronic Onset Date Unknown Plan -Patient with history of illicit drug use-heroin -Opiate dependence -Replacement therapy with methadone -Encourage enrollment in pain management/drug rehabilitation posthospitalization Current status: Fair, improved Anticipated discharge date: Anticipated discharge in 2 days Anticipated discharge placement: Home versus alf facility Patient care time: Time spent in chart review, patient interview, physical exam, CPOE, and care documentation: 25 minutes Visit to patient today: 1 Complexity of care: Moderate E&M Codes Rounding: Inpt-Moderate/24366
[2016-07-16 11:21] VITALS: BP 157/66
[2016-07-16 14:42] VITALS: BP 153/62
--- NOTE | 2016-07-16 16:20 | Progress Note ---
Subjective General Knee feel "much better" ... the best its felt since this began. Up walking today. Hungry. Constitutional Denies: Fever, Chills, Sweats, Malaise. Physical Exam Vital Signs / I&Os Vital Signs Date Time Temp Pulse Resp B/P Pulse O2 O2 Flow FiO2 Ox Delivery Rate 07/16 1442 36.7 56 14 153/62 94 Room Air 07/16 1121 36.8 65 18 157/66 97 Room Air 0.0 07/16 0800 Room Air 07/16 0743 37.0 61 18 140/58 95 Room Air 0.0 07/16 0332 Room Air 07/16 0225 37.1 61 16 146/65 94 Room Air 0.0 07/15 2235 37.1 72 20 147/70 98 Room Air 0.0 07/15 1827 36.7 92 20 138/64 Room Air I&O 07/16 0000 07/15 1600 07/15 0800 Intake Total 072 139 1480 Output Total 650 300 375 Balance -458 527 0726 General Appearance Alert, Oriented X3, Cooperative, No acute distress Extremities Decreased redness and swelling R knee. Band aid dressing intact. Neurological Sensation intact, Moving R knee better with active SLR, quads, HSs, AD&PFs & E&FHLs. Psych/Mental Status Mental status normal, Mood normal LAB Results Laboratory Tests 07/16 07/16 1127 0700 Chemistry C-Reactive Protein (0.0 - 0.9 mg/dL) 8.6 Hematology WBC (4.5 - 11.5 K/uL) 11.8 RBC (4.50 - 5.90 M/uL) 3.72 Hgb (13.5 - 17.5 gm/dL) 9.3 Hct (41.0 - 53.0 %) 31.4 MCV (80 - 100 fL) 84 MCH (26 - 34 pg) 25 RDW (11.6 - 14.8 %) 20.8 Neut % (Auto) (50 - 75 %) 59 Lymph % (Auto) (25 - 40 %) 33 [place] % (Auto) (3 - 14 %) 3 Eos % (Auto) (0 - 4 %) 4 Baso % (Auto) (0 - 2 %) 0 Band Neutrophils % (0 - 8 %) 1 Metamyelocytes % (0 - 1 %) 0 Myelocytes (0 - 1 %) 0 Other Cell Type 0 Plt Count, EDTA (150 - 400 K/uL) 252 Anisocytosis (manual) 2+ Target Cells 1+ PUBS MCHC (31 - 37 g/dL) 30 Toxicology Vancomycin Trough (10.0 - 20.0 ug/mL) 17.7 WBC and CRP dramtically improved although still above normal. All cultures NO GROWTH. No orgs or crystals seen in synovial fluid. Assessment and Plan Problem List 1. Cellulitis Plan follow exam, WBC and CRP/ESR labs. 2. Heroin use 3. Effusion of knee joint right Plan Will advance diet as surgery unlikely to be needed. Continue current care. Follow cultures as well as exam, WBC and CRP/ESR labs.
[2016-07-16 19:08] VITALS: BP 146/70
[2016-07-16 22:32] VITALS: BP 156/72
[2016-07-17 02:12] VITALS: BP 153/74
[2016-07-17 07:00] VITALS: BP 172/64
--- NOTE | 2016-07-17 08:21 | Progress Note ---
Subjective General Note Date: July 17, 2016 Admission Date: July 12, 2016 Hospital Day: 6 PCP: None Status: Inpatient Advanced Directive: Chemical Code Room: 305 Brief History: The patient is a 66-year-old white male with a significant past medical history of illicit drug use-heroin, opiate dependence 10 years, degenerative joint disease, chronic low back pain, who presented to [facility] emergency department on the day of admission secondary to complaints of painful, red, swollen right knee and leg. [facility] ER evaluation was consistent with cellulitis of the right lower extremity with possible septic arthritis of the right knee. Secondary to the above, the patient was admitted by Jassi Shepherd M.D. for further evaluation and treatment. For other history present illness, past medical history, family history, social history, review of systems, and admission physical examination please see the patient's history and physical examination and ER visit note in the patient's medical record. Subjective: Status continues to improve. Persistent swelling right lower leg. Persistent pain in knee but with improved status. Patient requests: None Medications and Allergies Medications Current Medications Sig/Lior Start time Last Medication Dose Route Stop Time Status Admin Magnesium Chloride 535 MG TID 07/15 1400 AC 07/17 PO 0543 Calcium Carbonate 2,000 MG DAILY 07/15 1146 AC 07/17 PO 0816 Cholecalciferol 2,000 UNIT DAILY 07/15 1144 AC 07/17 PO 0816 Methadone HCl 15 MG Q6HR 07/14 1200 AC 07/17 PO 0543 Vancomycin HCl/ 200 ML 0000,1200 07/14 1200 AC 07/17 Dextrose IV 0014 Sodium Chloride 1,000 ML ASDIRECTED 07/13 2145 AC 07/16 IV 0939 Pantoprazole Sodium 40 MG QAM 07/13 0900 AC 07/17 IV 0816 Enoxaparin Sodium 40 MG QAM 07/12 1300 AC 07/17 SC 0816 Piperacillin/ 50 ML Q6HR 07/12 1200 AC 07/17 Tazobactam/Dextrose IV 0543 Nicotine 21 MG QAM 07/12 0900 AC 07/17 TOP 0815 Acetaminophen 650 MG Q4H PRN 07/12 0600 AC PO Hydromorphone HCl 1 MG Q2H PRN 07/12 0600 AC 07/17 IV 0816 Ondansetron HCl See Dose Q4H PRN 07/12 0600 AC 07/16 Insts (1) IV 1202 Triazolam 0.125 MG QHS PRN 07/12 0600 AC PO Dose Instructions: (1)Ondansetron HCl: 4 - 8 MG Allergies Coded Allergies: NKA (07/12/16) Physical Exam Vital Signs / I&Os Vital Signs Date Time Temp Pulse Resp B/P Pulse O2 O2 Flow FiO2 Ox Delivery Rate 07/17 0700 98.2 74 18 172/64 96 Room Air 0.0 07/17 0212 98.8 75 18 153/74 96 Room Air 0.0 07/16 2232 99.0 73 18 156/72 96 Room Air 0.0 07/16 2100 Room Air 07/16 1908 98.8 66 18 146/70 98 Room Air 07/16 1442 98.1 56 14 153/62 94 Room Air 07/16 1121 98.2 65 18 157/66 97 Room Air 0.0 I&O 07/17 0000 07/16 1600 07/16 0800 Intake Total 903 0 1469 Output Total 1150 1100 125 Balance -247 -1100 1344 General Appearance Alert, Oriented X3, Cooperative, No acute distress Lungs Clear to auscultation Cardiovascular Regular rate and rhythm, Normal S1 and S2 Abdomen Normal bowel sounds, Soft, No tenderness Extremities No cyanosis, No clubbing, Persistent edema right lower leg-improved Neurological Cranial nerves intact, No lateralizing signs Psych/Mental Status Mental status normal, Mood normal LAB Results Laboratory Tests 07/17 07/16 0525 1127 Chemistry Plasma Magnesium (1.8 - 2.4 mg/dL) 1.9 C-Reactive Protein (0.0 - 0.9 mg/dL) 8.1 Hematology WBC (4.5 - 11.5 K/uL) 11.9 RBC (4.50 - 5.90 M/uL) 3.84 Hgb (13.5 - 17.5 gm/dL) 9.8 Hct (41.0 - 53.0 %) 30.7 MCV (80 - 100 fL) 80 MCH (26 - 34 pg) 26 RDW (11.6 - 14.8 %) 19.0 Neut % (Auto) (50 - 75 %) 54 Lymph % (Auto) (25 - 40 %) 34 [place] % (Auto) (3 - 14 %) 5 Eos % (Auto) (0 - 4 %) 7 Baso % (Auto) (0 - 2 %) 0 Band Neutrophils % (0 - 8 %) 0 Metamyelocytes % (0 - 1 %) 0 Myelocytes (0 - 1 %) 0 Other Cell Type 0 Plt Count, EDTA (150 - 400 K/uL) 285 PUBS MCHC (31 - 37 g/dL) 32 Toxicology Vancomycin Trough (10.0 - 20.0 ug/mL) 17.7 Assessment and Plan Problem List 1. Cellulitis Plan -Improved -Continue present therapy -Decreased WBC/CRP. We'll discuss switch to oral medications with orthopedics 2. COPD (chronic obstructive pulmonary disease) Plan -Stable -O2 sats normal on room air -Monitor 3. Chronic pain Plan -Stable -Outpatient referral to pain management/drug treatment -Continue methadone at present levels -Celebrex 200 mg by mouth twice a day 4. Hypomagnesemia Status Acute Onset Date Unknown Plan -Resolved -Recheck in a.m. -Magnesium 2.5 on 07/16/16 5. Opiate dependence Status Chronic Onset Date Unknown Plan -Stable -No findings of opiate withdrawal -Continue methadone at current levels -Outpatient referral to methadone treatment program/pain management 6. Nicotine dependence Status Chronic Onset Date Unknown Plan -Smoking cessation education -NicoDerm patch when necessary -Emphasized smoking abstinence post discharge 7. Effusion of knee joint right Plan -Cultures remained negative -Continue Zosyn and vancomycin -Discussed switch to oral antimicrobials with orthopedics -No clear infectious etiology at this time. -WBC/CRP improved Current status: Fair, improved Anticipated discharge date: Anticipated discharge in 2-3 days Anticipated discharge placement: Home versus intermediate facility for rehabilitation Patient care time: Time spent in chart review, patient interview, physical exam, CPOE, and care documentation: 25 minutes Visit to patient today: 1 Complexity of care: Moderate E&M Codes Rounding: Inpt-Moderate/94383
[2016-07-17 10:42] VITALS: BP 155/82
--- NOTE | 2016-07-17 11:40 | Progress Note ---
Subjective General R knee getting "better" Constitutional Denies: Fever, Chills, Sweats, Weakness, Malaise. Physical Exam Vital Signs / I&Os Vital Signs Date Time Temp Pulse Resp B/P Pulse O2 O2 Flow FiO2 Ox Delivery Rate 07/17 1042 36.4 71 18 155/82 98 Room Air 0.0 07/17 0800 Room Air 07/17 0700 36.8 74 18 172/64 96 Room Air 0.0 07/17 0212 37.1 75 18 153/74 96 Room Air 0.0 07/16 2232 37.2 73 18 156/72 96 Room Air 0.0 07/16 2100 Room Air 07/16 1908 37.1 66 18 146/70 98 Room Air 07/16 1442 36.7 56 14 153/62 94 Room Air I&O 07/17 0000 07/16 1600 07/16 0800 Intake Total 903 0 1469 Output Total 1150 1100 125 Balance -247 -1100 1344 General Appearance Alert, Oriented X3, Cooperative, No acute distress Extremities R knee ROM slightly improved 20-100 degrees. No recurrent effusion but "woody" soft tissue suprapatellar. Injection site with old dried blood only. Decreased redness and warmth. Skin No Breakdown Neurological Normal exam, No lateralizing signs Psych/Mental Status Mental status normal, Mood normal, Confused LAB Results Laboratory Tests 07/17 0525 Chemistry Plasma Magnesium (1.8 - 2.4 mg/dL) 1.9 C-Reactive Protein (0.0 - 0.9 mg/dL) 8.1 Hematology WBC (4.5 - 11.5 K/uL) 11.9 RBC (4.50 - 5.90 M/uL) 3.84 Hgb (13.5 - 17.5 gm/dL) 9.8 Hct (41.0 - 53.0 %) 30.7 MCV (80 - 100 fL) 80 MCH (26 - 34 pg) 26 RDW (11.6 - 14.8 %) 19.0 Neut % (Auto) (50 - 75 %) 54 Lymph % (Auto) (25 - 40 %) 34 [place] % (Auto) (3 - 14 %) 5 Eos % (Auto) (0 - 4 %) 7 Baso % (Auto) (0 - 2 %) 0 Band Neutrophils % (0 - 8 %) 0 Metamyelocytes % (0 - 1 %) 0 Myelocytes (0 - 1 %) 0 Other Cell Type 0 Plt Count, EDTA (150 - 400 K/uL) 285 PUBS MCHC (31 - 37 g/dL) 32 All new culture NG @ 1 day All prior cultures No Growth and final Assessment and Plan Problem List 1. Cellulitis 2. Heroin use 3. Effusion of knee joint right Plan Follow exam, labs (WBC, CRP and ESR), cultures, continue current treatment including abx. Start PT for ROM, strengthening R knee and gait training. Keep knee fully extended with pillows behind ankle/lower leg and not behind knee. Will likely need PT to continue after DC on abx. Not a candidate for HHIV given hx of active heroine use.
[2016-07-17 15:03] VITALS: BP 148/77
[2016-07-17 18:11] VITALS: BP 157/80
[2016-07-17 23:16] VITALS: BP 159/85
[2016-07-18 03:21] VITALS: BP 175/82
[2016-07-18 06:49] VITALS: BP 162/78
--- NOTE | 2016-07-18 07:10 | Progress Note ---
Subjective General No c/o sleeping and easily awakened. Physical Exam Vital Signs / I&Os Vital Signs Date Time Temp Pulse Resp B/P Pulse O2 O2 Flow FiO2 Ox Delivery Rate 07/18 0649 36.8 60 18 162/78 94 Room Air 07/18 0321 36.7 56 20 175/82 95 Room Air 07/17 2316 36.6 70 18 159/85 95 Room Air 07/17 2144 Room Air 07/17 1811 37.0 69 16 157/80 99 Room Air 07/17 1503 37.0 73 16 148/77 96 07/17 1042 36.4 71 18 155/82 98 Room Air 0.0 07/17 0800 Room Air I&O 07/18 0000 07/17 1600 07/17 0800 Intake Total 240 1109 911 Output Total 1500 2000 1650 Balance -1260 -891 -739 General Appearance Alert, Oriented X3, Cooperative, No acute distress Extremities R LE positioned appropriately with no support behind knee. Eric wrap on. Neurological No lateralizing signs Psych/Mental Status Mental status normal, Mood normal LAB Results Laboratory Tests 07/18 612 Chemistry Plasma Magnesium Pending C-Reactive Protein Pending Hematology WBC (4.5 - 11.5 K/uL) Pending RBC (4.50 - 5.90 M/uL) Pending Hgb (13.5 - 17.5 gm/dL) Pending Hct (41.0 - 53.0 %) Pending MCV (80 - 100 fL) Pending MCH (26 - 34 pg) Pending RDW (11.6 - 14.8 %) Pending Neut % (Auto) (50 - 75 %) Pending Lymph % (Auto) (25 - 40 %) Pending [place] % (Auto) (3 - 14 %) Pending Band Neutrophils % (0 - 8 %) Pending Plt Count, EDTA (150 - 400 K/uL) Pending PUBS MCHC (31 - 37 g/dL) Pending All new cultures still NGTD. Assessment and Plan Problem List 1. Cellulitis 2. Heroin use 3. Effusion of knee joint right Plan Continue current care with PT for knee ROM, strengthening and gait training. OK to transition to PO abx from ortho perspective. Will follow exam, WBS, CRP, ESR & cultures.
[2016-07-18 11:10] VITALS: BP 150/66
--- NOTE | 2016-07-18 14:27 | Progress Note ---
Subjective General Note Date: July 18, 2016 Admission Date: July 12, 2016 Hospital Day: 7 PCP: None Status: Inpatient Advanced Directive: Chemical Code Room: 305 Brief History: The patient is a 66-year-old white male with a significant past medical history of illicit drug use-heroin, opiate dependence 10 years, degenerative joint disease, chronic low back pain, who presented to [facility] emergency department on the day of admission secondary to complaints of painful, red, swollen right knee and leg. [facility] ER evaluation was consistent with cellulitis of the right lower extremity with possible septic arthritis of the right knee. Secondary to the above, the patient was admitted by Jassi Shepherd M.D. for further evaluation and treatment. For other history present illness, past medical history, family history, social history, review of systems, and admission physical examination please see the patient's history and physical examination and ER visit note in the patient's medical record. Subjective: Status continues to improve. Decreased swelling right leg. Persistent pain in knee but with significantly improved status. Patient requests: None Medications and Allergies Medications Current Medications Sig/Lior Start time Last Medication Dose Route Stop Time Status Admin Cephalexin 500 MG QID 07/18 1800 UNV PO Trimethoprim/ 1 TAB BID 07/18 1408 UNVr Sulfamethoxazole PO Pantoprazole Sodium 40 MG 0600 07/18 0900 AC 07/18 Sesquihydrate PO 1227 Magnesium Chloride 535 MG TID 07/15 1400 AC 07/18 PO 1415 Calcium Carbonate 2,000 MG DAILY 07/15 1146 AC 07/18 PO 0849 Cholecalciferol 2,000 UNIT DAILY 07/15 1144 AC 07/18 PO 0849 Methadone HCl 15 MG Q6HR 07/14 1200 AC 07/18 PO 1227 Vancomycin HCl/ 200 ML 0000,1200 07/14 1200 AC 07/18 Dextrose IV 1336 Enoxaparin Sodium 40 MG QAM 07/12 1300 AC 07/18 SC 0849 Piperacillin/ 50 ML Q6HR 07/12 1200 AC 07/18 Tazobactam/Dextrose IV 1227 Nicotine 21 MG QAM 07/12 0900 AC 07/18 TOP 0848 Acetaminophen 650 MG Q4H PRN 07/12 0600 AC PO Hydromorphone HCl 1 MG Q2H PRN 07/12 0600 AC 07/18 IV 0849 Ondansetron HCl See Dose Q4H PRN 07/12 0600 AC 07/16 Insts (1) IV 1202 Triazolam 0.125 MG QHS PRN 07/12 600 AC 07/17 PO 2353 Dose Instructions: (1)Ondansetron HCl: 4 - 8 MG Allergies Coded Allergies: NKA (07/12/16) Physical Exam Vital Signs / I&Os Vital Signs Date Time Temp Pulse Resp B/P Pulse O2 O2 Flow FiO2 Ox Delivery Rate 07/18 1110 98.1 66 18 150/66 95 Room Air 07/18 0649 98.2 60 18 162/78 94 Room Air 07/18 0321 98.1 56 20 175/82 95 Room Air 07/17 2316 97.9 70 18 159/85 95 Room Air 07/17 2144 Room Air 07/17 1811 98.6 69 16 157/80 99 Room Air 07/17 1503 98.6 73 16 148/77 96 I&O 07/18 0000 07/17 1600 07/17 0800 Intake Total 240 1109 911 Output Total 1500 2000 1650 Balance -1260 -891 -739 General Appearance Alert, Oriented X3, Cooperative, No acute distress Lungs Clear to auscultation Cardiovascular Regular rate and rhythm, Normal S1 and S2 Abdomen Normal bowel sounds, Soft, No tenderness Extremities No cyanosis, No clubbing, edema right lower extremity significantly improved Neurological Cranial nerves intact, No lateralizing signs Psych/Mental Status Mental status normal, Mood normal LAB Results Laboratory Tests 07/18 612 Chemistry Plasma Magnesium (1.8 - 2.4 mg/dL) 2.0 C-Reactive Protein (0.0 - 0.9 mg/dL) 7.4 Hematology WBC (4.5 - 11.5 K/uL) 10.4 RBC (4.50 - 5.90 M/uL) 4.09 Hgb (13.5 - 17.5 gm/dL) 10.4 Hct (41.0 - 53.0 %) 32.5 MCV (80 - 100 fL) 80 MCH (26 - 34 pg) 26 RDW (11.6 - 14.8 %) 18.7 Neut % (Auto) (50 - 75 %) 52 Lymph % (Auto) (25 - 40 %) 32 [place] % (Auto) (3 - 14 %) 12 Eos % (Auto) (0 - 4 %) 4 Baso % (Auto) (0 - 2 %) 0 Band Neutrophils % (0 - 8 %) 0 Metamyelocytes % (0 - 1 %) 0 Myelocytes (0 - 1 %) 0 Other Cell Type 0 Plt Count, EDTA (150 - 400 K/uL) 352 Hypochromic-Microcytic 1+ Anisocytosis (manual) 1+ Microcytosis (manual) 1+ Spherocytes 1+ PUBS MCHC (31 - 37 g/dL) 32 Assessment and Plan Problem List 1. Cellulitis Plan -Resolved involving right lower extremity 2. Hypomagnesemia Status Acute Onset Date Unknown Plan -Resolved 3. Opiate dependence Status Chronic Onset Date Unknown Plan -Referral to methadone treatment program -Discharge planning to be with patient today to aid in the patient's referral -No signs of opiate withdrawal. 4. Nicotine dependence Status Chronic Onset Date Unknown Plan -Smoking cessation education -NicoDerm patch on discharge -Encourage smoking abstinence post discharge 5. Effusion of knee joint right Plan -Status post much improved -Pain improved -Patient ambulating -Cultures 2 negative -Switch to Bactrim DS 1 by mouth twice a day and Keflex 500 mg by mouth 4 times a day. -Possible discharge 1-2 days May need residential/rehabilitation Current status: Fair, improved Anticipated discharge date: 1-2 days Anticipated discharge placement: long term facility/rehabilitation Patient care time: Time spent in chart review, patient interview, physical exam, CPOE, and care documentation: 25 minutes Visit to patient today: 1 Complexity of care: Moderate E&M Codes Rounding: Inpt-Moderate/[id number]
--- NOTE | 2016-07-18 14:27 | Progress Note ---
Subjective General Note Date: July 18, 2016 Admission Date: July 12, 2016 Hospital Day: 7 PCP: None Status: Inpatient Advanced Directive: Chemical Code Room: 305 Brief History: The patient is a 66-year-old white male with a significant past medical history of illicit drug use-heroin, opiate dependence 10 years, degenerative joint disease, chronic low back pain, who presented to [facility] emergency department on the day of admission secondary to complaints of painful, red, swollen right knee and leg. [facility] ER evaluation was consistent with cellulitis of the right lower extremity with possible septic arthritis of the right knee. Secondary to the above, the patient was admitted by Jassi Shepherd M.D. for further evaluation and treatment. For other history present illness, past medical history, family history, social history, review of systems, and admission physical examination please see the patient's history and physical examination and ER visit note in the patient's medical record. Subjective: Status continues to improve. Decreased swelling right leg. Persistent pain in knee but with significantly improved status. Patient requests: None Medications and Allergies Medications Current Medications Sig/Lior Start time Last Medication Dose Route Stop Time Status Admin Cephalexin 500 MG QID 07/18 1800 UNV PO Trimethoprim/ 1 TAB BID 07/18 1408 UNVr Sulfamethoxazole PO Pantoprazole Sodium 40 MG 0600 07/18 0900 AC 07/18 Sesquihydrate PO 1227 Magnesium Chloride 535 MG TID 07/15 1400 AC 07/18 PO 1415 Calcium Carbonate 2,000 MG DAILY 07/15 1146 AC 07/18 PO 0849 Cholecalciferol 2,000 UNIT DAILY 07/15 1144 AC 07/18 PO 0849 Methadone HCl 15 MG Q6HR 07/14 1200 AC 07/18 PO 1227 Vancomycin HCl/ 200 ML 0000,1200 07/14 1200 AC 07/18 Dextrose IV 1336 Enoxaparin Sodium 40 MG QAM 07/12 1300 AC 07/18 SC 0849 Piperacillin/ 50 ML Q6HR 07/12 1200 AC 07/18 Tazobactam/Dextrose IV 1227 Nicotine 21 MG QAM 07/12 0900 AC 07/18 TOP 0848 Acetaminophen 650 MG Q4H PRN 07/12 0600 AC PO Hydromorphone HCl 1 MG Q2H PRN 07/12 0600 AC 07/18 IV 0849 Ondansetron HCl See Dose Q4H PRN 07/12 0600 AC 07/16 Insts (1) IV 1202 Triazolam 0.125 MG QHS PRN 07/12 600 AC 07/17 PO 2353 Dose Instructions: (1)Ondansetron HCl: 4 - 8 MG Allergies Coded Allergies: NKA (07/12/16) Physical Exam Vital Signs / I&Os Vital Signs Date Time Temp Pulse Resp B/P Pulse O2 O2 Flow FiO2 Ox Delivery Rate 07/18 1110 98.1 66 18 150/66 95 Room Air 07/18 0649 98.2 60 18 162/78 94 Room Air 07/18 0321 98.1 56 20 175/82 95 Room Air 07/17 2316 97.9 70 18 159/85 95 Room Air 07/17 2144 Room Air 07/17 1811 98.6 69 16 157/80 99 Room Air 07/17 1503 98.6 73 16 148/77 96 I&O 07/18 0000 07/17 1600 07/17 0800 Intake Total 240 1109 911 Output Total 1500 2000 1650 Balance -1260 -891 -739 General Appearance Alert, Oriented X3, Cooperative, No acute distress Lungs Clear to auscultation Cardiovascular Regular rate and rhythm, Normal S1 and S2 Abdomen Normal bowel sounds, Soft, No tenderness Extremities No cyanosis, No clubbing, edema right lower extremity significantly improved Neurological Cranial nerves intact, No lateralizing signs Psych/Mental Status Mental status normal, Mood normal LAB Results Laboratory Tests 07/18 612 Chemistry Plasma Magnesium (1.8 - 2.4 mg/dL) 2.0 C-Reactive Protein (0.0 - 0.9 mg/dL) 7.4 Hematology WBC (4.5 - 11.5 K/uL) 10.4 RBC (4.50 - 5.90 M/uL) 4.09 Hgb (13.5 - 17.5 gm/dL) 10.4 Hct (41.0 - 53.0 %) 32.5 MCV (80 - 100 fL) 80 MCH (26 - 34 pg) 26 RDW (11.6 - 14.8 %) 18.7 Neut % (Auto) (50 - 75 %) 52 Lymph % (Auto) (25 - 40 %) 32 [place] % (Auto) (3 - 14 %) 12 Eos % (Auto) (0 - 4 %) 4 Baso % (Auto) (0 - 2 %) 0 Band Neutrophils % (0 - 8 %) 0 Metamyelocytes % (0 - 1 %) 0 Myelocytes (0 - 1 %) 0 Other Cell Type 0 Plt Count, EDTA (150 - 400 K/uL) 352 Hypochromic-Microcytic 1+ Anisocytosis (manual) 1+ Microcytosis (manual) 1+ Spherocytes 1+ PUBS MCHC (31 - 37 g/dL) 32 Assessment and Plan Problem List 1. Cellulitis Plan -Resolved involving right lower extremity 2. Hypomagnesemia Status Acute Onset Date Unknown Plan -Resolved 3. Opiate dependence Status Chronic Onset Date Unknown Plan -Referral to methadone treatment program -Discharge planning to be with patient today to aid in the patient's referral -No signs of opiate withdrawal. 4. Nicotine dependence Status Chronic Onset Date Unknown Plan -Smoking cessation education -NicoDerm patch on discharge -Encourage smoking abstinence post discharge 5. Effusion of knee joint right Plan -Status post much improved -Pain improved -Patient ambulating -Cultures 2 negative -Switch to Bactrim DS 1 by mouth twice a day and Keflex 500 mg by mouth 4 times a day. -Possible discharge 1-2 days May need [facility]/rehabilitation Current status: Fair, improved Anticipated discharge date: 1-2 days Anticipated discharge placement: [facility] facility[facility]rehabilitation Patient care time: Time spent in chart review, patient interview, physical exam, CPOE, and care documentation: 25 minutes Visit to patient today: 1 Complexity of care: Moderate E&M Codes Rounding: Inpt-Moderate/[id number]
[2016-07-18 14:34] VITALS: BP 145/66
[2016-07-18 18:17] VITALS: BP 143/70
[2016-07-18 22:27] VITALS: BP 140/72
[2016-07-19 02:13] VITALS: BP 150/72
[2016-07-19 06:51] VITALS: BP 146/66
--- NOTE | 2016-07-19 08:16 | Progress Note ---
Subjective General Note Date: July 19, 2016 Admission Date: July 12, 2016 Hospital Day: 8 PCP: None Status: Inpatient Advanced Directive: Chemical Code Room: 305 Brief History: The patient is a 66-year-old white male with a significant past medical history of illicit drug use-heroin, opiate dependence 10 years, degenerative joint disease, chronic low back pain, who presented to [facility] emergency department on the day of admission secondary to complaints of painful, red, swollen right knee and leg. [facility] ER evaluation was consistent with cellulitis of the right lower extremity with possible septic arthritis of the right knee. Secondary to the above, the patient was admitted by Jassi Shepherd M.D. for further evaluation and treatment. For other history present illness, past medical history, family history, social history, review of systems, and admission physical examination please see the patient's history and physical examination and ER visit note in the patient's medical record. Subjective: Patient states he is doing much better. Knee pain essentially resolved. Ready for discharge at this time. Patient requests: None Medications and Allergies Medications Current Medications Sig/Lior Start time Last Medication Dose Route Stop Time Status Admin Celecoxib 200 MG BID 07/18 2100 AC 07/18 PO 203 Cephalexin 500 MG QID 07/18 1800 AC 07/19 PO 0548 Trimethoprim/ 1 TAB BID 07/18 1408 AC 07/18 Sulfamethoxazole PO 203 Pantoprazole Sodium 40 MG 0600 07/18 0900 AC 07/19 Sesquihydrate PO 0548 Magnesium Chloride 535 MG TID 07/15 1400 AC 07/19 PO 0547 Calcium Carbonate 2,000 MG DAILY 07/15 1146 AC 07/18 PO 0849 Cholecalciferol 2,000 UNIT DAILY 07/15 1144 AC 07/18 PO 0849 Methadone HCl 15 MG Q6HR 07/14 1200 AC 07/19 PO 0547 Enoxaparin Sodium 40 MG QAM 07/12 1300 AC 07/18 SC 0849 Nicotine 21 MG QAM 07/12 0900 AC 07/18 TOP 0848 Acetaminophen 650 MG Q4H PRN 07/12 0600 AC 07/18 PO 2040 Ondansetron HCl See Dose Q4H PRN 07/12 0600 AC 07/16 Insts (1) IV 1202 Triazolam 0.125 MG QHS PRN 07/12 0600 AC 07/17 PO 2353 Dose Instructions: (1)Ondansetron HCl: 4 - 8 MG Allergies Coded Allergies: NKA (07/12/16) Physical Exam Vital Signs / I&Os Vital Signs Date Time Temp Pulse Resp B/P Pulse O2 O2 Flow FiO2 Ox Delivery Rate 07/19 0651 97.9 66 18 146/66 97 Room Air 07/19 0213 97.9 70 18 150/72 95 Room Air 0.0 07/18 2227 98.1 67 16 140/72 96 Room Air 07/18 1817 98.2 74 18 143/70 95 Room Air 07/18 1600 Room Air 07/18 1434 98.1 67 18 145/66 96 Room Air 07/18 1110 98.1 66 18 150/66 95 Room Air I&O 07/19 0000 07/18 1600 07/18 0800 Intake Total 150 640 250 Output Total 755 1735 1610 Balance -608 -9193 -1360 General Appearance Alert, Oriented X3, Cooperative, No acute distress Lungs Clear to auscultation Cardiovascular Regular rate and rhythm, Normal S1 and S2 Extremities No cyanosis, No clubbing, persistent edema right leg much improved. Good range of motion with knee flexion and extension. No erythema. Neurological Grossly normal Psych/Mental Status Mental status normal, Mood normal Assessment and Plan Problem List 1. Cellulitis Plan -Much improved. -Switch to oral medications today. 2. Hypomagnesemia Status Acute Onset Date Unknown Plan -Resolved. -Mag 64 one by mouth twice a day on discharge. 3. Opiate dependence Status Chronic Onset Date Unknown Plan -Patient referred to methadone treatment program -Methadone 20 mg by mouth every 8 hours on discharge 4. Nicotine dependence Status Chronic Onset Date Unknown Plan -NicoDerm on discharge -Smoking cessation education -Emphasized smoking abstinence post discharge 5. Effusion of knee joint right Plan -Afebrile -WBC normalized, CRP improved -Cultures negative to date -Plan discharge this p.m. or in a.m. on Keflex 500 mg by mouth 4 times a day and Bactrim DS one by mouth twice a day -Close outpatient follow-up with orthopedics Current status: Fair, improved Anticipated discharge date: Today Anticipated discharge placement: Home versus shelter facility with rehabilitation Patient care time: Time spent in chart review, patient interview, physical exam, CPOE, and care documentation: 25 minutes Visit to patient today: 1 Complexity of care: Moderate For other recommendations regarding discharge diet, activity, followup, and discharge medications please see the patient's discharge instructions. Greater than 30 min. was spent in the patient's discharge preparation including discharge interview and physical examination, progress note, discharge instructions, and discharge summary E&M Codes Discharge: Inpt >30 min spent/[id number]
--- NOTE | 2016-07-19 08:16 | Progress Note ---
Subjective General Note Date: July 19, 2016 Admission Date: July 12, 2016 Hospital Day: 8 PCP: None Status: Inpatient Advanced Directive: Chemical Code Room: 305 Brief History: The patient is a 66-year-old white male with a significant past medical history of illicit drug use-heroin, opiate dependence 10 years, degenerative joint disease, chronic low back pain, who presented to [facility] emergency department on the day of admission secondary to complaints of painful, red, swollen right knee and leg. [facility] ER evaluation was consistent with cellulitis of the right lower extremity with possible septic arthritis of the right knee. Secondary to the above, the patient was admitted by Jassi Shepherd M.D. for further evaluation and treatment. For other history present illness, past medical history, family history, social history, review of systems, and admission physical examination please see the patient's history and physical examination and ER visit note in the patient's medical record. Subjective: Patient states he is doing much better. Knee pain essentially resolved. Ready for discharge at this time. Patient requests: None Medications and Allergies Medications Current Medications Sig/Lior Start time Last Medication Dose Route Stop Time Status Admin Celecoxib 200 MG BID 07/18 2100 AC 07/18 PO 203 Cephalexin 500 MG QID 07/18 1800 AC 07/19 PO 0548 Trimethoprim/ 1 TAB BID 07/18 1408 AC 07/18 Sulfamethoxazole PO 203 Pantoprazole Sodium 40 MG 0600 07/18 0900 AC 07/19 Sesquihydrate PO 0548 Magnesium Chloride 535 MG TID 07/15 1400 AC 07/19 PO 0547 Calcium Carbonate 2,000 MG DAILY 07/15 1146 AC 07/18 PO 0849 Cholecalciferol 2,000 UNIT DAILY 07/15 1144 AC 07/18 PO 0849 Methadone HCl 15 MG Q6HR 07/14 1200 AC 07/19 PO 0547 Enoxaparin Sodium 40 MG QAM 07/12 1300 AC 07/18 SC 0849 Nicotine 21 MG QAM 07/12 0900 AC 07/18 TOP 0848 Acetaminophen 650 MG Q4H PRN 07/12 0600 AC 07/18 PO 2040 Ondansetron HCl See Dose Q4H PRN 07/12 0600 AC 07/16 Insts (1) IV 1202 Triazolam 0.125 MG QHS PRN 07/12 0600 AC 07/17 PO 2353 Dose Instructions: (1)Ondansetron HCl: 4 - 8 MG Allergies Coded Allergies: NKA (07/12/16) Physical Exam Vital Signs / I&Os Vital Signs Date Time Temp Pulse Resp B/P Pulse O2 O2 Flow FiO2 Ox Delivery Rate 07/19 0651 97.9 66 18 146/66 97 Room Air 07/19 0213 97.9 70 18 150/72 95 Room Air 0.0 07/18 2227 98.1 67 16 140/72 96 Room Air 07/18 1817 98.2 74 18 143/70 95 Room Air 07/18 1600 Room Air 07/18 1434 98.1 67 18 145/66 96 Room Air 07/18 1110 98.1 66 18 150/66 95 Room Air I&O 07/19 0000 07/18 1600 07/18 0800 Intake Total 150 640 250 Output Total 755 3185 1610 Balance -605 -9554 -1360 General Appearance Alert, Oriented X3, Cooperative, No acute distress Lungs Clear to auscultation Cardiovascular Regular rate and rhythm, Normal S1 and S2 Extremities No cyanosis, No clubbing, persistent edema right leg much improved. Good range of motion with knee flexion and extension. No erythema. Neurological Grossly normal Psych/Mental Status Mental status normal, Mood normal Assessment and Plan Problem List 1. Cellulitis Plan -Much improved. -Switch to oral medications today. 2. Hypomagnesemia Status Acute Onset Date Unknown Plan -Resolved. -Mag 64 one by mouth twice a day on discharge. 3. Opiate dependence Status Chronic Onset Date Unknown Plan -Patient referred to methadone treatment program -Methadone 20 mg by mouth every 8 hours on discharge 4. Nicotine dependence Status Chronic Onset Date Unknown Plan -NicoDerm on discharge -Smoking cessation education -Emphasized smoking abstinence post discharge 5. Effusion of knee joint right Plan -Afebrile -WBC normalized, CRP improved -Cultures negative to date -Plan discharge this p.m. or in a.m. on Keflex 500 mg by mouth 4 times a day and Bactrim DS one by mouth twice a day -Close outpatient follow-up with orthopedics Current status: Fair, improved Anticipated discharge date: Today Anticipated discharge placement: Home versus alf facility with rehabilitation Patient care time: Time spent in chart review, patient interview, physical exam, CPOE, and care documentation: 25 minutes Visit to patient today: 1 Complexity of care: Moderate For other recommendations regarding discharge diet, activity, followup, and discharge medications please see the patient's discharge instructions. Greater than 30 min. was spent in the patient's discharge preparation including discharge interview and physical examination, progress note, discharge instructions, and discharge summary E&M Codes Discharge: Inpt >30 min spent/[id number]
--- NOTE | 2016-07-19 08:17 | Progress Note ---
Physical Exam LAB Results WBC 10.4 is WNL. All cultures No Growth and final. Assessment and Plan Problem List 1. Effusion of knee joint right Plan Will sign off, continue PT and antibiotics per hospitalist plan. Call with questions. 2. Cellulitis 3. Heroin use
[2016-07-19 09:48] VITALS: BP 142/76
--- NOTE | 2016-07-19 11:08 | Discharge Summary ---
Discharge Summary Report Admit Date 07/12/16 Discharge Date 07/19/16 Admission Diagnosis 1. Cellulitis-right leg 2. Effusion right knee 3. Illicit drug use-heroin 4. Opiate dependence-heroin 5. Obesity 6. Chronic pain Discharge Diagnosis 1. Cellulitis-right leg 2. Effusion right knee 3. Illicit drug use-heroin 4. Opiate dependence-heroin 5. Obesity 6. Chronic pain 7. Nicotine dependence-smoking 8. Hypomagnesemia Brief History The patient is a 66-year-old white male with a significant past medical history of illicit drug use-heroin, opiate dependence 10 years, degenerative joint disease, chronic low back pain, who presented to [facility] emergency department on the day of admission secondary to complaints of painful, red, swollen right knee and leg. [facility] ER evaluation was consistent with cellulitis of the right lower extremity with possible septic arthritis of the right knee. Secondary to the above, the patient was admitted by Jassi Shepherd M.D. for further evaluation and treatment. For other history present illness, past medical history, family history, social history, review of systems, and admission physical examination please see the patient's history and physical examination and ER visit note in the patient's medical record. Hospital Course The following problems and their management were noted during the patient's hospitalization: 1. Cellulitis-right leg The patient was admitted with findings of cellulitis of the right leg with associated right knee effusion. The patient was treated with IV followed by by mouth antimicrobials. At the time of discharge his WBC had normalized. He was afebrile. His CRP was much improved. Cultures 2 of synovial fluid right knee were negative for growth. He was discharged on combination therapy of Bactrim DS one by mouth twice a day and Keflex 500 mg by mouth 4 times a day. He will continue this for additional week. The patient will follow-up in one week with Dr. Ledesma for reevaluation 2. Effusion right knee The patient presented with right knee effusion and right knee pain. The joint was aspirated 2. No organisms were noted. Cell count showed inflammatory response with mid range elevation of WBC at 40,000. No crystals were seen. The patient was treated with IV followed by by mouth antimicrobials. There is no clear evidence of bacterial infection however antibiotics will be continued for a full 2 week course of therapy. Outpatient follow-up with Dr. Ledesma next week. 3. Illicit drug use-heroin The patient has a history of illicit drug use-heroin. He has a 10 year history of heroin usage for chronic pain. The patient was placed on methadone 15 mg by mouth every 6 hours during his hospital stay. He exhibited no significant withdrawal symptoms on this regimen. He will be discharged on methadone 20 mg by mouth every 8 hours with follow-up treatment at [facility] methadone program beginning on July 22, 2016. 4. Opiate dependence-heroin See above. Follow-up with methadone treatment program. 5. Obesity Patient encouraged to follow a weight reduction program 6. Chronic pain Patient with history of chronic pain. We'll attempt to enroll in treatment with primary care provider at [facility]. Referral to pain management by PCP. Patient discharged on methadone for opiate addiction and Celebrex 200 mg by mouth twice a day. Symptoms adequately controlled with this regimen 7. Nicotine dependence-smoking The patient has a history of nicotine dependence-smoking. He underwent smoking cessation education. Encourage smoking abstinence post discharge. NicoDerm patch on discharge 8. Hypomagnesemia The patient exhibited mild hypomagnesemia. He was discharged on mag 64 one by mouth twice a day. General Appearance Alert, Oriented X3, Cooperative, No acute distress Lungs Clear to auscultation Cardiovascular Regular Rate, Normal S1, Normal S2 Abdomen Normal bowel sounds, Soft, No tenderness Neurological Grossly normal Psych/Mental Status Mental status NL, Mood NL Discharge Instructions/Meds For other recommendations regarding discharge diet, activity, followup, and discharge medications please see the patient's discharge instructions. Discharge condition: Good, improved Greater than 30 min. was spent in the patient's discharge preparation including discharge interview and physical examination, progress note, discharge instructions, and discharge summary The patient was interviewed and examined on the day of discharge. E&M Codes Discharge: Inpt >30 min spent/[id number]
[2016-07-19] MEDS ORDERED: CEPHALEXIN500 MG PO (11:15)
[2016-07-19] MEDS ORDERED: NICOTINE T21 MG/24 H TOP (11:15)
[2016-07-19] MEDS ORDERED: SMZ-TMP DS1 TAB PO (11:15)
[2016-07-19] MEDS ORDERED: CELEBREX200 MG PO (11:16)
[2016-07-19] MEDS ORDERED: MAG6464 MG PO (11:17)
[2016-07-19] MEDS ORDERED: METHADONE HCL5 MG PO (11:17)
--- NOTE | 2016-07-19 11:21 | Provider's Discharge Care Plan ---
Problem, Goal, Plan Problem List 1. Effusion of knee joint right Goals: Improve disease control, Prevent disease progress Instructions: Follow up as directed, Take meds as directed, Keep leg wrapped with Eric wrap as done in hospital until seen by orthopedics 2. Opiate dependence Goals: Improve disease control, Improve function, Improved health/wellness, Prevent disease progress Instructions: Follow up as directed, Take meds as directed, Follow-up with the methadone treatment program as outlined prior to discharge 3. Nicotine dependence Goals: Improve disease control, Improved health/wellness, Prevent disease progress Instructions: Follow up as directed, Take meds as directed, Stop smoking 4. Hypomagnesemia Goals: Improve disease control, Improve nutrition status, Prevent disease progress Instructions: Follow up as directed, Take meds as directed
== END 2016-07-19 13:30 | disposition home or self-care (01) | DRG 603 ==
LOC: ED SRH 21:42 → TRANS SRH 07-12 01:07 → ACUTE2 SRH 07-12 03:40 → CC SRH 07-12 03:40 → ACUTE2 SRH 07-17 16:06
PROVIDERS: ADMIT Emergency Medicine
PROC: 0S9C3ZX Drainage of Right Knee Joint, Percutaneous Approach, Diagnostic (ICD-10-PCS; principal; 2016-07-12)
PROC: 3E0234Z Introduction of Serum, Toxoid and Vaccine into Muscle, Percutaneous Approach (ICD-10-PCS; 2016-07-13)
PROC: 0S9C3ZX Drainage of Right Knee Joint, Percutaneous Approach, Diagnostic (ICD-10-PCS; 2016-07-15)
DX: L03.115 Cellulitis of right lower limb (principal); M25.461 Effusion, right knee; F11.20 Opioid dependence, uncomplicated; E83.42 Hypomagnesemia; Z23 Encounter for immunization; R79.89 Other specified abnormal findings of blood chemistry; J44.9 Chronic obstructive pulmonary disease, unspecified; G89.29 Other chronic pain; M54.5 Low back pain; M25.519 Pain in unspecified shoulder; F17.200 Nicotine dependence, unspecified, uncomplicated